=== PATIENT | male | born 1930 | race Caucasian/White ===

== ENCOUNTER 2016-05-07 11:41 | Outpatient (CLI) | payer MEDICARE, OTHER | END 2016-05-07 11:42 | disposition home or self-care (01) | DX: J20.9 Acute bronchitis, unspecified (principal) ==

== ENCOUNTER 2019-09-12 13:56 | Outpatient (CLI) | payer MEDICARE, OTHER ==
--- NOTE | 2019-09-13 14:36 | XRAY Report ---
Reason: ARTHRITIS R KNEE Procedure Date: 09/12/2019 Accession Number: [id number] / [id number] Procedure: XR - Knee 3 View RT CPT Code: Final Report FULL RESULT: EXAM: RIGHT KNEE RADIOGRAPHY EXAM DATE: 09/12/2019 02:24 PM. CLINICAL HISTORY: ARTHRITIS R KNEE. Chronic right knee pain and swelling. COMPARISON: None. TECHNIQUE: 3 views. FINDINGS: Bones: Normal. No fractures or bone lesions. Joints: Moderate medial compartmental narrowing. Spurring of the tibial spines and intercondylar notch. Mild suprapatellar spurring. Mild narrowing of patella femoral joint space with lateral marginal osteophytes. Medial tibial plateau subchondral sclerosis. Soft Tissues: Atherosclerotic arterial calcifications. No soft tissue swelling. IMPRESSION: Mild to moderate degenerative changes. Kellgren Perez Grade 2-3. Kellgren and Perez classification of osteoarthritis: Grade 0: no radiographic features of osteoarthritis are present Grade 1: doubtful joint space narrowing (JSN) and possible osteophytic lipping Grade 2: definite osteophytes and possible JSN on anteroposterior weight-bearing radiograph Grade 3: multiple osteophytes, definite JSN, sclerosis, possible bony deformity Grade 4: large osteophytes, marked JSN, severe sclerosis and definite bony deformity RADIA
== END 2019-09-12 13:57 | disposition home or self-care (01) ==
LOC: DI 13:56
PROVIDERS: ATTEND Family Medicine
DX: M17.11 Unilateral primary osteoarthritis, right knee (principal)

== ENCOUNTER 2020-01-31 15:56 | Inpatient (IN) | payer MEDICARE, OTHER ==
--- NOTE | 2020-01-31 16:30 | ED Physician Documentation ---
History of Present Illness - Stated complaint Stated Complaint: SOA/SWOLLEN ABD - History obtained from History obtained from: Patient, Other (care notes, cardiology) - Additonal information Additional information: 89-year-old gentleman that has a history of coronary artery disease (s/p CABG), congestive systolic heart failure, atrial fibrillation on anticoagulation and diabetes was asked to come to the emergency department for evaluation of anasarca. I spoke with his peanut butter maker Dr. Evans earlier this a.m. He reports that 10 days ago the patient's Lasix regimen was stopped as the primary provider (Dr. Chavez) felt it was not effective at reducing his water retention. He was changed from 80 mg of Lasix twice daily to Bumex 1 mg twice daily. Since then the patient has had progressive swelling anasarca of his lower extremities up into the abdomen. Patient denies chest pain but states that he is more dyspneic than normal. He denies cough or fevers. No abdominal pain nausea or vomiting . Review of Systems Constitutional: denies: Fever, Chills Ears: reports: Reviewed and negative Nose: reports: Reviewed and negative Cardiac: reports: Reviewed and negative, Other (Worsening anasarca) Respiratory: reports: Dyspnea. denies: Cough, Hemoptysis, Wheezing GI: reports: Abdominal Swelling. denies: Abdominal Pain, Nausea, Vomiting, Constipation, Diarrhea : denies: Dysuria, Frequency, Hesitancy Skin: denies: Rash, Lesions Musculoskeletal: reports: Reviewed and negative Neurologic: reports: Generalized weakness, Focal weakness Psychiatric: reports: Reviewed and negative PD PAST MEDICAL HISTORY - Past Medical History Cardiovascular: Hypertension, High cholesterol, Coronary artery disease, Atrial fibrillation, Other Respiratory: Shortness of breath Endocrine/Autoimmune: Type 2 diabetes : Benign prostate hypertrophy - Past Surgical History Past Surgical History: Yes Cardiovascular: CABG, Coronary stent, Cardiac catheterization, Other - Present Medications Home Medications: Ambulatory Orders Medication Instructions Recorded Confirmed Alfuzosin HCl [Alfuzosin HCl ER] 10 mg PO DAILY 02/28/19 06/09/19 Amlodipine Besylate 5 mg PO ONCE 02/28/19 06/09/19 Atorvastatin Calcium 40 mg PO DAILY 02/28/19 06/09/19 Cetirizine HCl [Allergy Relief] 10 mg PO DAILY 02/28/19 06/09/19 Finasteride 5 mg PO DAILY 02/28/19 06/09/19 Fluticasone Propionate [24 Hour 2 spray RAMON DAILY 02/28/19 06/09/19 Allergy] Furosemide 40 mg PO BID 02/28/19 06/09/19 Insulin Glargine [Lantus Solostar] 18 units SUBQ QPM 02/28/19 06/09/19 Losartan Potassium 50 mg PO DAILY 02/28/19 06/09/19 Metoprolol Succinate 50 mg PO BID 02/28/19 06/09/19 Montelukast Sodium 10 mg PO DAILY 02/28/19 06/09/19 Prazosin HCl 2 mg PO TID 02/28/19 06/09/19 Rivaroxaban [Xarelto] 15 mg PO DAILY 02/28/19 06/09/19 metFORMIN [Glucophage] 1,000 mg PO BID 02/28/19 06/09/19 Cholecalciferol (Vitamin D3) 400 unit PO DAILY 06/09/19 06/09/19 [Vitamin D3] - Allergies Allergies/Adverse Reactions: Allergies Allergy/AdvReac Type Severity Reaction Status Date / Time Cephalosporins AdvReac Rash Verified 01/31/20 16:14 - Social History Does the pt smoke?: No Smoking Status: Never smoker Does the pt drink ETOH?: Yes Does the pt have substance abuse?: No - Immunizations Immunizations are current?: Yes - POLST Patient has POLST: No PD ED PE EXPANDED - General General: Alert, No acute distress - Neck Neck: Supple w/out meningeal sx, Soft tissue TTP. No: JVD present, No tenderness, Bony TTP, Limited ROM - Cardiac Cardiac: Irregularly irregular, Murmur Present, Radial strong equal, Femoral strong equal, Pedal strong equal, Cap refill < 2 sec - Respiratory Respiratory: Clear to ausultation wayne, Other (Mild tachypnea without distress) - Abdomen Abdomen: Normal Bowel sounds, Other (grossly swollen abdomen with anasarca). No: Tender to palpation - Derm Derm: Other (Hemosiderin staining bilateral lower extremities) - Extremities Extremities: Pedal Pulses Present, Other (Generalized pitting edema bilateral lower extremities including the abdomen. No pitting edema of the upper arms) - Neuro Neuro: Alert and Oriented X 3, CNII-XII intact - GCS Eye Opening: Spontaneous Motor: Obeys Commands Verbal: Oriented Total: 15 Results - Vitals Vitals: Vital Signs - 24 hr 01/31/20 16:05 Temperature 36.5 C Heart Rate 82 Respiratory 23 Rate Blood Pressure 143/80 H O2 Saturation 99 Oxygen O2 Source Room air - EKG (time done) 1617 Rate: Rate (enter#) (81) Rhythm: Atrial fibrillation [place]: Other (IVC) Intervals: Other (intraventricular conductiond elay) Ischemia: Non specific changes Compare to prior EKG: Unchanged from prior EKG Computer interpretation: Agree with computer - Labs Labs: Laboratory Tests 01/31/20 01/31/20 01/31/20 16:30 16:30 16:30 WBC 4.1 L RBC 3.06 L Hgb 7.0 L* Hct 24.8 L MCV 81.0 MCH 22.9 L MCHC 28.2 L RDW 21.3 H Plt Count 199 MPV 10.8 Reticulocyte % (Auto) Neut # (Auto) 2.7 Lymph # (Auto) 0.7 L [place] # (Auto) 0.6 Eos # (Auto) 0.2 Baso # (Auto) 0.0 Absolute Nucleated RBC 0.00 Nucleated RBC % 0.0 Manual Slide Review Indicated WBC Morphology NORMAL APPEARANCE Platelet Estimate NORMAL (130-450,000) Platelet Morphology NORMAL APPEARANCE RBC Morph Micro Appear 1+ SCHISTOCYTES Absolute Retic Sodium 143 Potassium 3.9 Chloride 105 Carbon Dioxide 27 Anion Gap 11.0 BUN 39 H Creatinine 1.7 H Estimated GFR (MDRD) 38 L Glucose 114 H Calcium 8.7 Total Bilirubin 0.8 AST 22 ALT 14 Alkaline Phosphatase 143 H Troponin I High Sens 17.7 B-Natriuretic Peptide Total Protein 6.9 Albumin 3.1 L Globulin 3.8 Albumin/Globulin Ratio 0.8 L Lipase 52 H 01/31/20 01/31/20 16:30 16:30 WBC RBC 3.03 L Hgb Hct MCV MCH MCHC RDW Plt Count MPV Reticulocyte % (Auto) 1.02 Neut # (Auto) Lymph # (Auto) [place] # (Auto) Eos # (Auto) Baso # (Auto) Absolute Nucleated RBC Nucleated RBC % Manual Slide Review WBC Morphology Platelet Estimate Platelet Morphology RBC Morph Micro Appear Absolute Retic 0.031 Sodium Potassium Chloride Carbon Dioxide Anion Gap BUN Creatinine Estimated GFR (MDRD) Glucose Calcium Total Bilirubin AST ALT Alkaline Phosphatase Troponin I High Sens B-Natriuretic Peptide 1941 H Total Protein Albumin Globulin Albumin/Globulin Ratio Lipase - Rads (name of study) CXR Radiology: Final report received (Finding is suggestive of congestive heart failure. Underlying lateral lower lobe patchy infiltrates cannot be excluded. No pneumothorax) PD MEDICAL DECISION MAKING - ED course Complexity details: reviewed old records, reviewed results, re-evaluated patient, considered differential, d/w patient ED course: 89-year-old male with a history of coronary artery disease, CABG, known systolic heart failure with last ejection fraction of 45% presents to the ER with worsening anasarca after a recent change in his diuretic from Lasix to Bumex. His ECG shows atrial fibrillation with good rate control. He does have a mildly elevated however this likely represents a mild troponin leak in the setting of heart failure. His labs today reveal worsening anemia with a baseline hemoglobin today of 7 (last hgb 8.6). Reduced hgb may in part be dilutional. His renal function is also worsening creatinine today 1.7. BNP markedly elevated at greater than 1900. At this time it appears that this gentleman has worsening heart failure likely secondary to volume overload and worsenign systolic heart failure. We have given him 40 mg of Lasix here in the emergency department. I discussed this patient with admitting hospitalist Dr. Bean who is agreed to bring the patient in for further evaluation and treatment of his heart failure and anasarca. Navi flynn and janell discussed with the patient and his at the bedside. Departure - Departure Disposition: 66 [facility] DC/Xfer Clinical Impression: Anasarca, Renal insufficiency Systolic heart failure Qualifiers: Heart failure chronicity: acute on chronic Qualified Code(s): I50.23 - Acute on chronic systolic (congestive) heart failure Atrial fibrillation Qualifiers: Atrial fibrillation type: longstanding persistent Qualified Code(s): I48.11 - Longstanding persistent atrial fibrillation
--- NOTE | 2020-01-31 16:34 | XRAY Report ---
PROCEDURE: Chest 1 View X-Ray INDICATIONS: Chest Pain TECHNIQUE: One view of the chest was acquired. COMPARISON: 06/21/2019 FINDINGS: Surgical changes and devices: Median sternotomy wires are again seen.. Lungs and pleura: Small left pleural effusion is likely present. No pneumothorax. There is pulmonary vascular congestion. Hazy opacity throughout bilateral lung isaac are noted suggestive of pulmonary edema. Underlying left lower lobe infiltrate cannot be excluded. Mediastinum: Mediastinal contours appear normal. Heart size is markedly enlarged. Bones and chest wall: No suspicious bony lesions. Overlying soft tissues appear unremarkable. IMPRESSION: Finding is suggestive of CHF. Underlying lateral lower lobe patchy infiltrates cannot be excluded. No pneumothorax. Reviewed by: Elliot Mclean MD on 01/31/2020 4:33 PM PDT Approved by: Elliot Mclean MD on 01/31/2020 4:33 PM PDT Station ID: [id number]
[2020-01-31 16:49] LABS: BASOPHILS % (AUTO) 0.5 %; EOSINOPHILS # (AUTO) 0.2 10^3/uL (0.0-0.7); EOSINOPHILS % (AUTO) 3.9 %; LYMPHOCYTES # (AUTO) 0.7 10^3/uL (1.5-3.5); LYMPHOCYTES % (AUTO) 16.9 %; MEAN CORPUSCULAR HEMOGLOBIN 22.9 pg (27.0-31.0); MEAN CORPUSCULAR HGB CONC 28.2 g/dL (32.0-36.0); MEAN PLATELET VOLUME 10.8 fL (7.4-11.4); MONOCYTES # (AUTO) 0.6 10^3/uL (0.0-1.0); MONOCYTES % (AUTO) 14.5 %; NEUTROPHILS # (AUTO) 2.7 10^3/uL (1.5-6.6); PLT - PLATELET COUNT 199 10^3/uL (130-450); RED BLOOD COUNT 3.06 10^6/uL (4.70-6.10); RED CELL DISTRIBUTION WIDTH 21.3 % (12.0-15.0); WHITE BLOOD COUNT 4.1 x10^3/uL (4.8-10.8)
[2020-01-31 17:04] LABS: ALBUMIN 3.1 g/dL (3.2-5.5); ALBUMIN/GLOBULIN RATIO 0.8 (1.0-2.2); BILIRUBIN,TOTAL 0.8 mg/dL (0.2-1.0); CALCIUM 8.7 mg/dL (8.5-10.3); CREATININE 1.7 mg/dL (0.6-1.2); PLATELET ESTIMATE, MANUAL NORMAL (130-450,000) (NORMAL); PLATELET MORPHOLOGY NORMAL APPEARANCE (NORMAL); TOTAL PROTEIN 6.9 g/dL (6.7-8.2)
[2020-01-31] MEDS ORDERED: FUROSEMIDE 40 MG/4 ML VIAL IVP STA (17:16)
[2020-01-31] MEDS ORDERED: ONDANSETRON 4 MG/2 ML VIAL IVP PRN (17:36)
[2020-01-31] MEDS ORDERED: oxyCODONE 5 MG TABLET PO PRN (17:36)
[2020-01-31] MEDS ORDERED: ONDANSETRON ODT 4 MG TABLET TL PRN (17:36)
[2020-01-31] MEDS ORDERED: ACETAMINOPHEN 325 MG TABLET PO PRN (17:36)
[2020-01-31] MEDS ORDERED: METOPROLOL 5 MG/5 ML VIAL IVP PRN (18:18)
[2020-01-31] MEDS ORDERED: ALBUTEROL NEB 2.5 MG/3 ML INH PRN (18:20)
[2020-01-31 18:25] LABS: ABSOLUTE RETICS # AUTO 0.031 10^6/uL (0.020-0.110); RED BLOOD COUNT 3.03 10^6/uL (4.70-6.10)
--- NOTE | 2020-01-31 18:52 | HISTORY & PHYSICAL EXAMINATION ---
Chief Complaint - Chief Complaint Chief Complaint: SOB History of Present Illness - Admitted From Admitted From:: ER - History Obtained From Records Reviewed: [facility] History obtained from: pt Exam Limitations: very difficult hearing - History of Present Illness HPI Comment/Other: This is a 89-year-old gentleman With a past medical history significant for hard hearing, Hypertension, High cholesterol, Coronary artery disease, Atrial fibrillation, congestive systolic heart failure, chronic shortness of breath, BPH and diabetes who was asked by his economic research analyst to come to the emergency department for evaluation of anasarca. Patient reported because he feel progressively shortness of breathing, special in the night he feel more short of breathing when he lay in the flat. He went to see his economic research analyst Dr. Evans on today. After Dr. Evans assessed patient, he recommended patient go to the emergency room For further evaluation for patient's anasarca.Per ER provider report from his economic research analyst Dr. Evans, 10 days ago the patient's Lasix regimen was stopped by his PCP as the primary provider felt it was not effective at reducing his water retention. his lasix 80 mg twice daily was changed to Bumex 1 mg twice daily. Since then the patient has had progressive swelling anasarca from his lower extremities up into the abdomen. On examination, patient did have extended abdomen and Moderate bilateral lower extremity edema. Patient denies chest pain, Fever or chill but states that he is more dyspneic than normal. He also reported right upper abdominal pain without nausea or vomiting beginning two or three days ago, pt denies Black or bloody stool. In routine laboratory testing show patient had elevated creatinine 1.7, BNP over 1900, and HGB 7.0. Chest x-ray finding is suggestive of CHF, laterally lower lobe patchy infiltration cannot be excluded. In the ER, patient is afebrile, no tachycardia, 99% sats in room air, RR 23, hemodynamic stable. Discussed care goal with the patient in ER with another nurse and one BODY WIRER because of pt's hard hearing, patient clearly state he want to be DNR. History - Past Medical History Cardiovascular: reports: Hypertension, High cholesterol, Coronary artery disease, Atrial fibrillation, Other Respiratory: reports: Shortness of breath Endocrine/Autoimmune: reports: Type 2 diabetes : reports: Benign prostate hypertrophy MRSA Hx?: No - Past Surgical History Cardiovascular: reports: CABG, Coronary stent, Cardiac catheterization, Other - Family & Social History Family History: Mother: , Father: Family History Comment/Other: Patient reported his father from heart failu re at the age 85, patient reported his mother is healthy but unfortunately from accident at age 85 at [place]. Social History Notes: Patient report he smoked when he service in the [employer] but he stopped smoking at age 21, he denies alcohol or drug issue. He is living at the [facility] - POLST Patient has POLST: No Meds/Allgy - Home Medications Home Medications: Ambulatory Orders Medication Instructions Recorded Confirmed Alfuzosin HCl [Alfuzosin HCl ER] 10 mg PO DAILY 02/28/19 06/09/19 Amlodipine Besylate 5 mg PO ONCE 02/28/19 06/09/19 Atorvastatin Calcium 40 mg PO DAILY 02/28/19 06/09/19 Cetirizine HCl [Allergy Relief] 10 mg PO DAILY 02/28/19 06/09/19 Finasteride 5 mg PO DAILY 02/28/19 06/09/19 Fluticasone Propionate [24 Hour 2 spray RAMON DAILY 02/28/19 06/09/19 Allergy] Furosemide 40 mg PO BID 02/28/19 06/09/19 Insulin Glargine [Lantus Solostar] 18 units SUBQ QPM 02/28/19 06/09/19 Losartan Potassium 50 mg PO DAILY 02/28/19 06/09/19 Metoprolol Succinate 50 mg PO BID 02/28/19 06/09/19 Montelukast Sodium 10 mg PO DAILY 02/28/19 06/09/19 Prazosin HCl 2 mg PO TID 02/28/19 06/09/19 Rivaroxaban [Xarelto] 15 mg PO DAILY 02/28/19 06/09/19 metFORMIN [Glucophage] 1,000 mg PO BID 02/28/19 06/09/19 Cholecalciferol (Vitamin D3) 400 unit PO DAILY 06/09/19 06/09/19 [Vitamin D3] - Allergies Allergies/Adverse Reactions: Allergies Allergy/AdvReac Type Severity Reaction Status Date / Time Cephalosporins AdvReac Rash Verified 01/31/20 16:14 Review of Systems - Constitutional Constitutional: denies: Fever, Chills, Poor appetite, Diaphoresis, Night sweats - Eyes Eyes: denies: Pain, Vision loss - Ears, Nose & Throat Ears, Nose & Throat: denies: Ear pain, Vertigo, Nosebleeds, Nasal congestion, Bleeding gums - Cardiovascular Cariovascular: reports: Edema, Exertional dyspnea, Decr. exercise tolerance, Orthopnea. denies: Palpitations, Chest pain, Lightheadedness, Syncope - Respiratory Respiratory: reports: Orthopnea, SOB at rest, SOB with exertion. denies: Cough, Sputum production, Snoring, Hemoptysis - Gastrointestinal Gastrointestinal: reports: Abdominal distention. denies: Diarrhea, Rectal bleeding, Black stools, Bloody stools, Nausea, Vomiting, Scott blood emesis - Genitourinary Genitourinary: denies: Dysuria - Musculoskeletal Musculoskeletal: denies: Muscle pain, Muscle aches, Limited range of motion - Integumentary Integumentary: denies: Rash, Lesions - Neurological Neurological: denies: Focal weakness, Headache, Dizziness, Numbness, Pre- existing deficit, Abnormal gait, Seizures, Incoordination, Slurred speech - Psychiatric Psychiatric: denies: Depression, Suicidal, Delusions, Hallucinations - Endocrine Endocrine: denies: Polyuria - Hematologic/Lymphatic Hematologic/Lymphatic: denies: Bruising Exam - Vital Signs Vital Signs: Vital Signs x48h Temp Pulse Resp BP Pulse Ox 01/31/20 16:05 36.5 C 82 23 143/80 H 99 - Physical Exam General Appearance: positive: Alert, Mild distress. negative: Lethargic Eyes Bilateral: positive: Normal inspection, PERRL, No lid inflammation ENT: positive: ENT inspection nml, No signs of dehydration. negative: Purulent nasal drainage Neck: positive: Nml inspection, Thyroid nml, Trachea midline. negative: Thyromegaly, Stiff neck, Tracheal deviation Respiratory: positive: Chest non-tender, No respiratory distress. negative: Wheezes, Rales Cardiovascular: positive: Irregularly irregular. negative: Tachycardia, Bradycardia, Systolic murmur, Diastolic murmur Peripheral Pulses: positive: 2+ Abdomen: positive: Non-tender, Nml bowel sounds, Other (pt has distention abdomen but without tenderness). negative: Tenderness, Guarding Back: positive: Nml inspection Skin: positive: Color nml, No rash, Warm, Dry. negative: Cyanosis, Diaphoresis, Pallor Extremities: positive: Non-tender, Full ROM, Pedal edema. negative: Calf tenderness Neurologic/Psychiatric: positive: Oriented x3, Motor nml, Sensation nml, Mood/affect nml. negative: Weakness, Sensory loss, Facial droop, Slurred/abnml speech, Depressed mood/affect Sepsis Event Note (H) - Evaluation Current Stage of Sepsis: Ruled out Conclusion/Plan - Problem List (1) Acute on chronic systolic (congestive) heart failure Conclusion/Plan: Per ER report patient had systolic heart failure with last ejection fraction of 45%. Patient present progressively shortness of breathing, orthopnea, anasarca with bilateral lower extremity edema, BNP over 1900, Chest x-ray suggestion CHF. ER already started with intravenous Lasix, we will continue intravenous Lasix.We will continue laboratory monitoring and continue vital signs monitor, Daily weight,Low-sodium diet, Because the patient also has acute kidney injury so patient has no fluids restriction in diet now, (2) Right upper quadrant abdominal pain Conclusion/Plan: pt report He had sharp up right abdominal pain For 2 to 3 days Special when he lay down in the bed. Patient has no abdominal pain now. Patient has no fever, WBC is not elevated. Patient reported he has no nausea, vomiting, diarrhea. Patient also present extended abdomen. We will ultrasound for patient abdomen, We will consult with a surgeon if necessary. (3) Anasarca Conclusion/Plan: Patient had extended abdomen with bilateral lower extremity edema, Elevated BNP, Shortness of breathing, It is likely from patient acute on chronic heart failure with fluid overloaded. Patient is also complaining abdominal discomfort. We will continue intravenous Lasix, we will do ultrasound of the abdomen. (4) KATHLEEN (acute kidney injury) Conclusion/Plan: Patient has creatinine 1.7, patient had creatinine 1.0 in June of this year. it is Likely from patient's Poor perfusion from heart failure. We will continue diuretics with Lasix, continue laboratory sample carrier, hold nephrogenic toxic agent. (5) Anemia Conclusion/Plan: Patient hemoglobin 7.0, patient looks pale, Shortness of breathing. Patient denies GI bleeding, black stool or bloody stool. We will order 1 unit of the blood, after the transfusion we will give the patient Lasix. Order Occult stool test (6) HTN (hypertension) Conclusion/Plan: Patient has a history of hypertension, will resume home blood pressure medicine, we will resume metoprolol after confirmed by pharmacy. (7) Diabetes Conclusion/Plan: Patient has history diabetic, patient take metformin in the home, will hold metformin, we will start with sliding scale, glucose check and hypoglycemia protocol (8) A-fib Conclusion/Plan: Patient has a history of atrial fibrillation, right now patient heart rate is controlled, we will resume home metoprolol and blood thinner Xarelto, Continue telemetry and vital signs monitor patient (9) BPH (benign prostatic hyperplasia) Conclusion/Plan: Patient has history of BPH, will give patient Flomax and will resume home medica tion after confirmed by pharmacy - Lab Results Fish Bones: 02/01/20 05:10 02/01/20 05:10 Core Measures - Anticipated LOS I expect patient to be DC'd or transferred within 96 hours.: Yes - DVT/VTE - Prophylaxis VTE/DVT Device ordered at admit?: Yes VTE/DVT Prophylaxis med ordered at admit?: Yes
[2020-01-31 18:56] LABS: % IRON SATURATION 4 % (20-50); IRON 18 ug/dL (45-182); TOTAL IRON BINDING CAPACITY 426 ug/dL (250-450); TRANSFERRIN 304 mg/dL (180-329)
[2020-01-31 19:11] LABS: FERRITIN 20.6 ng/mL (23.9-336.2)
[2020-01-31] MEDS: INSULIN ASPART 300 UNIT/3 ML PEN SUBQ SCH (21:08)
[2020-01-31] MEDS ORDERED: FUROSEMIDE 40 MG/4 ML VIAL IVP SCH (23:00)
[2020-02-01] MEDS: FERROUS SULFATE 325 MG TABLET PO SCH ×3 (00:26→21:19)
[2020-02-01] MEDS: MONTELUKAST 10 MG TABLET PO SCH ×2 (00:26→21:19)
[2020-02-01] MEDS: SODIUM CHLORIDE FLUSH 0.9% 10 ML SYRINGE IVP SCH ×3 (00:26→15:52)
[2020-02-01] MEDS: FAMOTIDINE 20 MG TABLET PO SCH ×3 (00:26→21:19)
[2020-02-01 05:19] LABS: BASOPHILS % (AUTO) 0.5 %; EOSINOPHILS # (AUTO) 0.2 10^3/uL (0.0-0.7); HGB - HEMOGLOBIN 7.6 g/dL (14.0-18.0); LYMPHOCYTES # (AUTO) 0.7 10^3/uL (1.5-3.5); LYMPHOCYTES % (AUTO) 17.6 %; MEAN CORPUSCULAR HEMOGLOBIN 23.4 pg (27.0-31.0); MEAN CORPUSCULAR HGB CONC 28.8 g/dL (32.0-36.0); MEAN CORPUSCULAR VOLUME 81.2 fL (80.0-94.0); MONOCYTES # (AUTO) 0.6 10^3/uL (0.0-1.0); MONOCYTES % (AUTO) 14.6 %; NEUTROPHILS # (AUTO) 2.5 10^3/uL (1.5-6.6); PLT - PLATELET COUNT 167 10^3/uL (130-450); RED BLOOD COUNT 3.25 10^6/uL (4.70-6.10); RED CELL DISTRIBUTION WIDTH 20.8 % (12.0-15.0)
[2020-02-01 05:33] LABS: CALCIUM 8.4 mg/dL (8.5-10.3); CREATININE 1.6 mg/dL (0.6-1.2)
[2020-02-01] MEDS: FUROSEMIDE 40 MG/4 ML VIAL IVP SCH ×2 (05:35→13:43)
[2020-02-01 05:47] LABS: PLATELET ESTIMATE, MANUAL NORMAL (130-450,000) (NORMAL)
[2020-02-01] MEDS ORDERED: FUROSEMIDE 40 MG/4 ML VIAL IVP SCH ×2 (06:00)
[2020-02-01] MEDS ORDERED: FERROUS SULFATE 325 MG TABLET PO SCH (08:00)
--- NOTE | 2020-02-01 08:22 | Ultrasound Report ---
PROCEDURE: Abdomen Complete INDICATIONS: upper abdominal pain, ascites, renal failure TECHNIQUE: Real-time scanning was performed of the abdominal and retroperitoneal organs, with image documentatio n. COMPARISON: None. FINDINGS: Liver: Liver is enlarged measuring 20.8 cm. Areas of nodularity are identified. It is overall demons trating steatosis. Gallbladder: Gallbladder demonstrates a markedly thickened wall measuring 8.2 mm. There are areas of increased echogenicity within the gallbladder which are nonmobile. Biliary ducts: Intrahepatic bile ducts are non-dilated. Extrahepatic bile duct caliber measures 7.4 mm. Normal is 6-7 mm or less in diameter, or 10 mm or less post-cholecystectomy. Pancreas: Visualized portions of the pancreas are sonographically normal. Spleen: Spleen is normal in size and homogeneous in echotexture. Kidneys: Kidneys are normal in size and echotexture. Right kidney measures 11.8 cm long; left kidne y measures 10.2 cm long. No hydronephrosis or nephrolithiasis. No solid masses. Left renal cyst is present measuring 13 x 14 mm. Echogenic focus is also noted in the inferior left renal pole measurin g 8 x 6 mm. No definitive shadowing is identified. Right renal cyst is noted measuring 5 x 5 mm. Aorta: Visualized aorta is normal in caliber at less than 3 cm. Iliacs: Proximal common iliac arteries are not visualized. IVC: Intrahepatic inferior vena cava is patent. Miscellaneous: Prominent ascites in all 4 quadrants. IMPRESSION: 1. Prominent ascites. 2. Hepatomegaly with nodularity. Steatosis is also present. 3. Marked gallbladder wall thickening with nonmobile stones versus polyps as above. While can typical ly represent cholelithiasis with cholecystitis, marked gallbladder wall thickening can also be seen w ith hepatic disease. Recommend clinical correlation patient's symptoms and further evaluation for acu te cholecystitis as indicated. Reviewed by: Alexandra Wiggins MD on 02/01/2020 8:21 AM PDT Approved by: Alexandra Wiggins MD on 02/01/2020 8:21 AM PDT Station ID: [id number]
[2020-02-01] MEDS: CYANOCOBALAMIN 500 MCG TABLET PO SCH (08:45)
[2020-02-01] MEDS: TAMSULOSIN 0.4 MG CAPSULE PO SCH (08:45)
[2020-02-01] MEDS: INSULIN ASPART 300 UNIT/3 ML PEN SUBQ SCH ×4 (08:48→21:12)
[2020-02-01] MEDS: METOPROLOL SUCCINATE 50 MG TABLET PO SCH (10:04)
[2020-02-01 11:53] LABS: HEMOGLOBIN A1c% 6.4 % (4.27-6.07)
[2020-02-01] MEDS ORDERED: PIPERACILLIN/TAZOBACTAM 3.375 GM in SODIUM CHLORIDE 0.9% MINIBAG 100 ML IV SCH ×5 (12:00→16:00)
--- NOTE | 2020-02-01 12:03 | PROVIDER PROGRESS NOTE ---
Assessment/Plan - Problem List (1) Acute on chronic systolic (congestive) heart failure Assessment/Plan: 10-15 Pt Feels better. Patient remain 97% sats on room air. BNP is trending down. Echo still pending. 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 Patient present progressively shortness of breathing, orthopnea, anasarca with bilateral lower extremity edema, BNP over 1900, Chest x-ray suggestion CHF. ER already started with intravenous Lasix, we will continue intravenous Lasix.We will continue laboratory monitoring and continue vital signs monitor, Daily weight,Low-sodium diet, Because the patient also has acute kidney injury so patient has no fluids restriction in diet now, (2) cholecystitis Conclusion/Plan: 1014, ultrasound showed patient had cholecystitis. Patient report 2-3 days abdominal pain. But the patient has no fever, no elevated WBC. Now his abdominal pain is controlled, and he feel comfortable. Patient has normal total bili, normal AST ALT, slightly elevated alkaline phosphate. Consult with surgeon, surgeon recommended antibiotics for patient now. Patient will see the patient, will continue follow-up with surgeon's recommendation. Add probiotics. Patient signed comfortable care in his PLOST, We discussed with the patient for any further intervention. pt report He had sharp up right abdominal pain For 2 to 3 days Special when he lay down in the bed. Patient has no abdominal pain now. Patient has no fever, WBC is not elevated. Patient reported he has no nausea, vomiting, diarrhea. Patient also present extended abdomen. We will ultrasound for patient abdomen, We will consult with a surgeon if necessary. (3) ascites Conclusion/Plan: Ultrasound show patient prominent ascites. Patient has normal total bili, normal AST ALT, slightly elevated alkaline phosphate. Continue follow-up surgeon to see if patient needed paracentesis. Patient has a liver nodules and combination patient has heart failure which both could contribute ascites. Patient had extended abdomen with bilateral lower extremity edema, Elevated BNP, Shortness of breathing, It is likely from patient acute on chronic heart failure with fluid overloaded. Patient is also complaining abdominal discomfort. We will continue intravenous Lasix, we will do ultrasound of the abdomen. (4)liver nodules Ultrasound showed patient has liver nodules, Patient has normal total bili, normal AST ALT, slightly elevated alkaline phosphate. We discussed the surgeon p atient may need MRCP To figure out patient liver nodule feature. 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 it is Likely from patient's Poor perfusion from heart failure. 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 (6) Anemia Conclusion/Plan: 1015, patient hemoglobin 7.6 after 1 unit blood transfusion, will continue lab monitor Patient hemoglobin 7.0, patient looks pale, Shortness of breathing. Patient denies GI bleeding, black stool or bloody stool. We will order 1 unit of the blood, after the transfusion we will give the patient Lasix. Order Occult stool test (7) HTN (hypertension) Conclusion/Plan: Patient has a history of hypertension, will resume home blood pressure medicine, we will resume metoprolol after confirmed by pharmacy. (8) Diabetes Conclusion/Plan: Patient has history diabetic, patient take metformin in the home, will hold metformin, we will start with sliding scale, glucose check and hypoglycemia protocol (9) A-fib Conclusion/Plan: 1015, stable, HR is controlled.Continue home medications Xarelto. Patient has a history of atrial fibrillation, right now patient heart rate is controlled, we will resume home metoprolol and blood thinner Xarelto, Continue telemetry and vital signs monitor patient (10) BPH (benign prostatic hyperplasia) Conclusion/Plan: Patient has history of BPH, will give patient Flomax and will resume home medication after confirmed by pharmacy - Current Meds Current Meds: Current Medications Generic Name Dose Route Start Last Admin Trade Name Devaughnq PRN Reason Stop Dose Admin Cyanocobalamin 500 mcg 02/01/20 09:00 02/01/20 08:45 Vitamin B-12 PO 500 mcg DAILY DIANA Administration Famotidine 20 mg 01/31/20 21:00 02/01/20 08:44 Pepcid PO 20 mg BID DIANA Administration Ferrous Sulfate 325 mg 01/31/20 21:00 02/01/20 08:45 Feosol PO 325 mg BID DIANA Administration Furosemide 40 mg 02/01/20 06:00 02/01/20 05:35 Lasix Inj 40 Mg Vial IVP 40 mg BIDDIURETIC DIANA Administration Piperacillin Sod/Tazobactam 100 mls @ 200 mls/hr 02/01/20 12:00 02/01/20 12:00 Sod 3.375 gm/ Sodium Chloride IV 02/01/20 13:00 200 mls/hr ONCE DIANA Administration Insulin Aspart 1 - 5 unit 01/31/20 21:00 02/01/20 08:48 Novolog SUBQ Not Given 0800,1200,1700,2100 DIANA Protocol Metoprolol Succinate 50 mg 02/01/20 09:00 02/01/20 10:04 Toprol Xl PO 50 mg DAILY DIANA Administration Montelukast Sodium 10 mg 01/31/20 21:00 02/01/20 00:26 Singulair PO 10 mg QPM DIANA Administration Sodium Chloride 10 ml 02/01/20 01:00 02/01/20 08:45 Normal Saline Flush 0.9% IVP 10 ml 0100,0900,1700 DIANA Administration Tamsulosin HCl 0.4 mg 02/01/20 09:00 02/01/20 08:45 Flomax PO 0.4 mg DAILY DIANA Administration - Lab Result Fish Bone Diagrams: 02/01/20 05:10 02/01/20 05:10 - Additional Planning My Orders: My Active Orders 01/31/20 17:58 Transfuse RBCs Leukoreduced [RC] .ONCE 01/31/20 18:14 Daily Weight [RC] 0600 01/31/20 18:16 Blood Glucose Checks - Eating [RC] 0800,1200,1700,2100 Initiate Hypoglycemia Protocol [RC] .protocol 01/31/20 18:18 Metoprolol Inj [Lopressor Inj] 5 mg IVP Q6H PRN 01/31/20 18:20 Nebulizer/MDI Tx. [RC] .PRN Resp Teach Nebulizer/MDI [RC] .ONCE Albuterol 2.5 mg INH RTQ4H PRN 01/31/20 21:00 Ferrous Sulfate [Feosol] 325 mg PO BID Insulin Aspart [NovoLOG] 1 - 5 unit SUBQ 0800,1200,1700,2100 Montelukast [Singulair] 10 mg PO QPM 02/01/20 General Surgery Consult [CONS] Routine 02/01/20 06:00 FUROSEMIDE INJ 40mg VIAL [LASIX INJ 40 mg VIAL] 40 mg IVP BIDDIURETIC 02/01/20 09:00 Cyanocobalamin [Vitamin B-12] 500 mcg PO DAILY Metoprolol Succinate [Toprol Xl] 50 mg PO DAILY Tamsulosin [Flomax] 0.4 mg PO DAILY 02/01/20 12:00 Piperacillin/Tazobactam [Zosyn] 3.375 gm Sodium Chloride 0.9% Minibag [Normal Saline 0.9% Minibag] 100 ml IV ONCE 02/01/20 16:00 Piperacillin/Tazobactam [Zosyn] 3.375 gm Sodium Chloride 0.9% Minibag [Normal Saline 0.9% Minibag] 100 ml IV Q8H 02/01/20 17:00 Rivaroxaban [Xarelto] 15 mg PO 1700 Saccharomyces Boulardii [Florastor] 250 mg PO BIDWM 02/01/20 18:14 Echo Transthoracic Complete [ECHO] Routine 02/02/20 05:00 BNP - B-NATRIURETIC PEPTIDE [IAI] DAILYLAB CBC - COMP BLD CT W/AUTO DIFF [HEME] DAILYLAB CMP [COMPREHENSIVE METABOLIC PANEL] [CHEM] DAILYLAB 02/03/20 05:00 BNP - B-NATRIURETIC PEPTIDE [IAI] DAILYLAB CBC - COMP BLD CT W/AUTO DIFF [HEME] DAILYLAB CMP [COMPREHENSIVE METABOLIC PANEL] [CHEM] DAILYLAB 02/04/20 05:00 BNP - B-NATRIURETIC PEPTIDE [IAI] DAILYLAB CBC - COMP BLD CT W/AUTO DIFF [HEME] DAILYLAB CMP [COMPREHENSIVE METABOLIC PANEL] [CHEM] DAILYLAB 02/05/20 05:00 BNP - B-NATRIURETIC PEPTIDE [IAI] DAILYLAB CBC - COMP BLD CT W/AUTO DIFF [HEME] DAILYLAB CMP [COMPREHENSIVE METABOLIC PANEL] [CHEM] DAILYLAB 02/06/20 05:00 CMP [COMPREHENSIVE METABOLIC PANEL] [CHEM] DAILYLAB Subjective - Subjective Patient Reports: Feeling Better Objective Vital Signs: Vital Signs - 24 hr 01/31/20 01/31/20 01/31/20 16:05 19:05 19:42 Temperature 36.5 C 36.3 C L 36.3 C L Heart Rate 82 81 Heart Rate [ 81 Brachial] Respiratory 23 18 16 Rate Blood Pressure 143/80 H 144/68 H Blood Pressure 134/79 H [Right Brachial artery] O2 Saturation 99 95 01/31/20 01/31/20 01/31/20 20:05 21:30 22:33 Temperature 36.4 C L 36.4 C L Heart Rate 73 81 81 Heart Rate [ Brachial] Respiratory 16 18 17 Rate Blood Pressure 135/94 H 147/83 H Blood Pressure [Right Brachial artery] O2 Saturation 02/01/20 02/01/20 02/01/20 00:00 00:26 05:36 Temperature 36.3 C L Heart Rate Heart Rate [ 84 78 74 Brachial] Respiratory 18 Rate Blood Pressure Blood Pressure 151/76 H 139/74 H 129/75 [Right Brachial artery] O2 Saturation 97 02/01/20 02/01/20 08:00 10:27 Temperature 36.5 C Heart Rate 62 Heart Rate [ 88 Brachial] Respiratory 18 18 Rate Blood Pressure Blood Pressure 134/75 H [Right Brachial artery] O2 Saturation 94 Oxygen O2 Source Room air I&O (Last 24 Hrs): Intake and Output Totals x24h 01/30/20 01/31/20 02/01/20 23:59 23:59 23:59 Intake Total 350 480 Output Total 625 3825 Balance -275 -2295 General: Alert, Oriented x3, No acute distress HEENT: Atraumatic Neck: Supple Lymphatic: no adenopathy Neuro: Alert, Non Focal, Oriented Times 3 Cardiovascular: Normal S1, Normal S2 Respiratory: Chest non-tender, No respiratory distress Abdomen: Normal bowel sounds, Soft, No tenderness Extremities: Normal pulses - Results Results: Laboratory Results WBC 4.0 x10^3/uL (4.8-10.8) L 02/01/20 05:10 RBC 3.25 10^6/uL (4.70-6.10) L 02/01/20 05:10 Hgb 7.6 g/dL (14.0-18.0) L 02/01/20 05:10 Hct 26.4 % (42.0-52.0) L 02/01/20 05:10 MCV 81.2 fL (80.0-94.0) 02/01/20 05:10 MCH 23.4 pg (27.0-31.0) L 02/01/20 05:10 MCHC 28.8 g/dL (32.0-36.0) L 02/01/20 05:10 RDW 20.8 % (12.0-15.0) H 02/01/20 05:10 Plt Count 167 10^3/uL (130-450) 02/01/20 05:10 MPV 10.0 fL (7.4-11.4) 02/01/20 05:10 Reticulocyte % (Auto) 1.02 % (0.5-2.3) 01/31/20 16:30 Neut # (Auto) 2.5 10^3/uL (1.5-6.6) 02/01/20 05:10 Lymph # (Auto) 0.7 10^3/uL (1.5-3.5) L 02/01/20 05:10 [place] # (Auto) 0.6 10^3/uL (0.0-1.0) 02/01/20 05:10 Eos # (Auto) 0.2 10^3/uL (0.0-0.7) 02/01/20 05:10 Baso # (Auto) 0.0 10^3/uL (0.0-0.1) 02/01/20 05:10 Absolute Nucleated RBC 0.00 x10^3/uL 02/01/20 05:10 Nucleated RBC % 0.0 /100WBC 02/01/20 05:10 Manual Slide Review Indicated 02/01/20 05:10 WBC Morphology NORMAL APPEARANCE (NORMAL) 01/31/20 16:30 Platelet Estimate NORMAL (130-450,000) (NORMAL) 02/01/20 05:10 Platelet Morphology NORMAL APPEARANCE (NORMAL) 01/31/20 16:30 RBC Morph Micro Appear 1+ ANISOCYTOSIS (NORMAL) 2+ HYPOCHROMASIA (NORMAL) 1+ OVALOCYTES (NORMAL) 02/01/20 05:10 RBC Morph Micro Appear 1+ ANISOCYTOSIS (NORMAL) 2+ HYPOCHROMASIA (NORMAL) 1+ OVALOCYTES (NORMAL) 02/01/20 05:10 RBC Morph Micro Appear 1+ ANISOCYTOSIS (NORMAL) 2+ HYPOCHROMASIA (NORMAL) 1+ OVALOCYTES (NORMAL) 02/01/20 05:10 Absolute Retic 0.031 10^6/uL (0.020-0.110) 01/31/20 16:30 Sodium 142 mmol/L (135-145) 02/01/20 05:10 Potassium 3.7 mmol/L (3.5-5.0) 02/01/20 05:10 Chloride 107 mmol/L (101-111) 02/01/20 05:10 Carbon Dioxide 26 mmol/L (21-32) 02/01/20 05:10 Anion Gap 9.0 (6-13) 02/01/20 05:10 BUN 34 mg/dL (6-20) H 02/01/20 05:10 Creatinine 1.6 mg/dL (0.6-1.2) H 02/01/20 05:10 Estimated GFR (MDRD) 41 (>89) L 02/01/20 05:10 Glucose 112 mg/dL (70-100) H 02/01/20 05:10 POC Whole Bld Glucose 115 mg/dL (70 - 100) H 02/01/20 11:02 Estimat Average Glucose 137 mg/dL (70-100) H 02/01/20 05:10 Hemoglobin A1c % 6.4 % (4.27-6.07) H 02/01/20 05:10 Calcium 8.4 mg/dL (8.5-10.3) L 02/01/20 05:10 Iron 18 ug/dL (45-182) L 01/31/20 16:30 TIBC 426 ug/dL (250-450) 01/31/20 16:30 % Saturation 4 % (20-50) L 01/31/20 16:30 Transferrin 304 mg/dL (180-329) 01/31/20 16:30 Ferritin 20.6 ng/mL (23.9-336.2) L 01/31/20 16:30 Total Bilirubin 0.8 mg/dL (0.2-1.0) 01/31/20 16:30 AST 22 IU/L (10-42) 01/31/20 16:30 ALT 14 IU/L (10-60) 01/31/20 16:30 Alkaline Phosphatase 143 IU/L (42-121) H 01/31/20 16:30 Lactate Dehydrogenase 189 IU/L (91-225) 01/31/20 16:30 Troponin I High Sens 17.7 ng/L (2.3-19.7) 01/31/20 16:30 B-Natriuretic Peptide 1828 pg/mL (5-100) H 10/15/20 05:10 Total Protein 6.9 g/dL (6.7-8.2) 01/31/20 16:30 Albumin 3.1 g/dL (3.2-5.5) L 01/31/20 16:30 Globulin 3.8 g/dL (2.1-4.2) 01/31/20 16:30 Albumin/Globulin Ratio 0.8 (1.0-2.2) L 01/31/20 16:30 Lipase 52 U/L (22-51) H 01/31/20 16:30 Vitamin B12 226 pg/mL (180-914) 01/31/20 16:30 Blood Type A POSITIVE 01/31/20 18:07 Blood Type Recheck A POSITIVE 01/31/20 16: Antibody Screen NEGATIVE 01/31/20 18: Crossmatch IS Only See Detail 01/31/20 18:07 Sepsis Event Note (H) - Evaluation Current Stage of Sepsis: Ruled out ABX Reporting Has patient been on IV antibiotics over the past 48 hours?: Yes Current Medications - Current Medications Current Medications: Active Medications Acetaminophen (Tylenol) 650 mg PO Q4HR PRN PRN Reason: Pain 1 to 4 Albuterol () 2.5 mg INH RTQ4H PRN PRN Reason: Wheezing Cyanocobalamin (Vitamin B-12) 500 mcg PO DAILY [facility] Last Admin: 02/01/20 08:45 Dose: 500 mcg Documented by: Famotidine (Pepcid) 20 mg PO BID [facility] Last Admin: 02/01/20 08:44 Dose: 20 mg Documented by: Ferrous Sulfate (Feosol) 325 mg PO BID [facility] Last Admin: 02/01/20 08:45 Dose: 325 mg Documented by: Furosemide (Lasix Inj 40 Mg Vial) 40 mg IVP BIDDIURETIC [facility] Last Admin: 02/01/20 05:35 Dose: 40 mg Documented by: Piperacillin Sod/Tazobactam (Sod 3.375 gm/ Sodium Chloride) 100 mls @ 25 mls/hr IV Q8H [facility] Insulin Aspart (Novolog) 1 - 5 unit SUBQ 0800,1200,1700,2100 [facility]; Protocol Last Admin: 02/01/20 12:50 Dose: Not Given Documented by: Metoprolol Succinate (Toprol Xl) 50 mg PO DAILY [facility] Last Admin: 02/01/20 10:04 Dose: 50 mg Documented by: Metoprolol Tartrate (Lopressor Inj) 5 mg IVP Q6H PRN PRN Reason: Tachycardia Montelukast Sodium (Singulair) 10 mg PO QPM [facility] Last Admin: 02/01/20 00:26 Dose: 10 mg Documented by: Ondansetron HCl (Zofran Odt) 4 mg TL Q6HR PRN PRN Reason: Nausea / Vomiting Ondansetron HCl (Zofran Inj) 4 mg IVP Q6HR PRN PRN Reason: Nausea / Vomiting Oxycodone HCl (Roxicodone) 5 mg PO Q4HR PRN PRN Reason: Pain 5 to 7 Rivaroxaban (Xarelto) 15 mg PO 1700 [facility] Saccharomyces Boulardii (Florastor) 250 mg PO BIDWM [facility] Sodium Chloride (Normal Saline Flush 0.9%) 10 ml IVP PRN PRN PRN Reason: NEEDED PER PROVIDER ORDERS Sodium Chloride (Normal Saline Flush 0.9%) 10 ml IVP 0100,0900,1700 [facility] Last Admin: 02/01/20 08:45 Dose: 10 ml Documented by: Tamsulosin HCl (Flomax) 0.4 mg PO DAILY [facility] Last Admin: 02/01/20 08:45 Dose: 0.4 mg Documented by: Alfuzosin HCl [Alfuzosin HCl ER] 10 mg PO DAILY 02/28/19 Amlodipine Besylate 5 mg PO ONCE 02/28/19 Atorvastatin Calcium 40 mg PO DAILY 02/28/19 Cetirizine HCl [Allergy Relief] 10 mg PO DAILY 02/28/19 Finasteride 5 mg PO DAILY 02/28/19 Fluticasone Propionate [24 Hour Allergy] 2 spray RAMON DAILY 02/28/19 Furosemide 40 mg PO BID 02/28/19 Insulin Glargine [Lantus Solostar] 18 units SUBQ QPM 02/28/19 Losartan Potassium 50 mg PO DAILY 02/28/19 Metoprolol Succinate 50 mg PO BID 02/28/19 Montelukast Sodium 10 mg PO DAILY 02/28/19 Prazosin HCl 2 mg PO TID 02/28/19 Rivaroxaban [Xarelto] 15 mg PO DAILY 02/28/19 metFORMIN [Glucophage] 1,000 mg PO BID 02/28/19 Cholecalciferol (Vitamin D3) [Vitamin D3] 400 unit PO DAILY 06/09/19
--- NOTE | 2020-02-01 16:34 | PHARMACY PROGRESS NOTE ---
- Best Possible Medication History Admit Date and Time: 01/31/20 1736 Processed by: Pharmacy Medication History completed: Yes Secondary Source(s): Physician records, Insurance records As the person ultimately responsible for medication therapy, providers are able to order a medication from an existing home medication list in [facility] via the "Reconcile Routine" prior to Confirmation of that medication by system support analyst. Such practice is discouraged except when the physician, in their clinical judgment, deems that a medical need exists for a medication without regard to previous use.
--- NOTE | 2020-02-01 16:39 | HISTORY & PHYSICAL EXAMINATION ---
Chief Complaint - Chief Complaint Chief Complaint: Swelling legs and abdomen Abdominal Pain HPI - History Obtained From Records Reviewed: Old records reviewed History obtained from: Patient, Family Exam limitations: No limitations - History of Present Illness Severity at the worst: Mild Pain Quality: Dull Duration: Days: (1) Associated symptoms: Other (leg swelling) HPI Comment/Other: He had change in medication and developed progressive swelling and abdominal pain yesterday. He has been admitted to medicine and treated. Today he is much improved. He has known CHF. His abdominal pain is gone. No nausea or vomiting . Tolerated breakfast well. Afebrile. An ultrasound of his abdomen was done. consult for gallbladder US: IMPRESSION: 1. Prominent ascites. 2. Hepatomegaly with nodularity. Steatosis is also present. 3. Marked gallbladder wall thickening with nonmobile stones versus polyps as above. While can typically represent cholelithiasis with cholecystitis, marked gallbladder wall thickening can also be seen with hepatic disease. Recommend clinical correlation patient's symptoms and further evaluation for acute cholecystitis as indicated. Reviewed by: Alexandra Wiggins MD on 02/01/2020 8:21 AM PDT Approved by: Alexandra Wiggins MD on 02/01/2020 8:21 AM PDT PMH/PSH - Past Medical History Cardiovascular: positive: Hypertension, High cholesterol, Coronary artery disease, Atrial fibrillation, Other Respiratory: positive: Shortness of breath Endocrine/Autoimmune: positive: Type 2 diabetes : positive: Benign prostate hypertrophy MRSA Hx?: No - Past Surgical History Cardiovascular: positive: CABG, Coronary stent, Cardiac catheterization, Other Social & Family Hx - Social History Does the pt smoke?: No Smoking Status: Former smoker Does the pt drink ETOH?: Yes Does the pt have substance abuse?: No - POLST Patient has POLST: No Meds/Allgy - Home Medications Home Medications: Ambulatory Orders Medication Instructions Recorded Confirmed Alfuzosin HCl [Alfuzosin HCl ER] 10 mg PO DAILY 02/28/19 06/09/19 Amlodipine Besylate 10 mg PO SUTUTHSA 02/28/19 06/09/19 Atorvastatin Calcium 40 mg PO QPM 02/28/19 06/09/19 Cetirizine HCl [Allergy Relief] 10 mg PO DAILY 02/28/19 06/09/19 Finasteride 5 mg PO DAILY 02/28/19 06/09/19 Furosemide 80 mg PO BID 02/28/19 06/09/19 Insulin Glargine [Lantus Solostar] 18 units SUBQ QPM 02/28/19 06/09/19 Losartan Potassium 50 mg PO DAILY 02/28/19 06/09/19 Metoprolol Succinate 50 mg PO BID 02/28/19 06/09/19 Montelukast Sodium 10 mg PO DAILY 02/28/19 06/09/19 Prazosin HCl 2 mg PO TID 02/28/19 06/09/19 metFORMIN [Glucophage] 1,000 mg PO BID 02/28/19 06/09/19 Cholecalciferol [Vitamin D3] 400 unit PO DAILY 02/01/20 Fluticasone [Flonase] 1 spray RAMON DAILY 02/01/20 Rivaroxaban [Xarelto] 15 mg PO DAILY 02/01/20 - Allergies Allergies/Adverse Reactions: Allergies Allergy/AdvReac Type Severity Reaction Status Date / Time Cephalosporins AdvReac Rash Verified 01/31/20 16:14 Review of Systems - Gastrointestinal Gastrointestinal: reports: Other (feeling much halima. denies abdominal pain or nausea) Exam - Vital Signs Reviewed Vital Signs: Yes Vital Signs: Vital Signs x48h Temp Pulse Pulse Resp BP Pulse Ox 02/01/20 15:42 36.0 C L 66 16 129/77 99 02/01/20 10:27 62 18 - Physical Exam General Appearance: positive: No acute distress, Alert Eyes Bilateral: positive: Normal inspection, PERRL, EOMI, No scleral icterus Respiratory: positive: No respiratory distress Abdomen: positive: Non-tender Results - Lab Results Fish Bones: 02/01/20 05:10 02/01/20 05:10 Other Lab Results: Lab Results x24hrs 02/01/20 02/01/20 02/01/20 Range/Units 11:02 07:49 05:10 WBC (4.8-10.8) x10^3/uL RBC (4.70-6.10) 10^6/uL Hgb (14.0-18.0) g/dL Hct (42.0-52.0) % MCV (80.0-94.0) fL MCH (27.0-31.0) pg MCHC (32.0-36.0) g/dL RDW (12.0-15.0) % Plt Count (130-450) 10^3/uL MPV (7.4-11.4) fL Reticulocyte % (Auto) (0.5-2.3) % Neut # (Auto) (1.5-6.6) 10^3/uL Lymph # (Auto) (1.5-3.5) 10^3/uL Ceiba # (Auto) (0.0-1.0) 10^3/uL Eos # (Auto) (0.0-0.7) 10^3/uL Baso # (Auto) (0.0-0.1) 10^3/uL Absolute Nucleated RBC x10^3/uL Nucleated RBC % /100WBC Manual Slide Review WBC Morphology (NORMAL) Platelet Estimate (NORMAL) Platelet Morphology (NORMAL) RBC Morph Micro Appear (NORMAL) Absolute Retic (0.020-0.110) 10^6/uL Sodium (135-145) mmol/L Potassium (3.5-5.0) mmol/L Chloride (101-111) mmol/L Carbon Dioxide (21-32) mmol/L Anion Gap (6-13) BUN (6-20) mg/dL Creatinine (0.6-1.2) mg/dL Estimated GFR (MDRD) (>89) Glucose (70-100) mg/dL POC Whole Bld Glucose 115 H 75 (70 - 100) mg/dL Estimat Average Glucose 137 H (70-100) mg/dL Hemoglobin A1c % 6.4 H (4.27-6.07) % Calcium (8.5-10.3) mg/dL Iron (45-182) ug/dL TIBC (250-450) ug/dL % Saturation (20-50) % Transferrin (180-329) mg/dL Ferritin (23.9-336.2) ng/mL Total Bilirubin (0.2-1.0) mg/dL AST (10-42) IU/L ALT (10-60) IU/L Alkaline Phosphatase (42-121) IU/L Lactate Dehydrogenase (91-225) IU/L Troponin I High Sens (2.3-19.7) ng/L B-Natriuretic Peptide (5-100) pg/mL Total Protein (6.7-8.2) g/dL Albumin (3.2-5.5) g/dL Globulin (2.1-4.2) g/dL Albumin/Globulin Ratio (1.0-2.2) Lipase (22-51) U/L Vitamin B12 (180-914) pg/mL Blood Type Blood Type Recheck Antibody Screen Crossmatch IS Only 02/01/20 02/01/20 02/01/20 Range/Units 05:10 05:10 05:10 WBC 4.0 L (4.8-10.8) x10^3/uL RBC 3.25 L (4.70-6.10) 10^6/uL Hgb 7.6 L (14.0-18.0) g/dL Hct 26.4 L (42.0-52.0) % MCV 81.2 (80.0-94.0) fL MCH 23.4 L (27.0-31.0) pg MCHC 28.8 L (32.0-36.0) g/dL RDW 20.8 H (12.0-15.0) % Plt Count 167 (130-450) 10^3/uL MPV 10.0 (7.4-11.4) fL Reticulocyte % (Auto) (0.5-2.3) % Neut # (Auto) 2.5 (1.5-6.6) 10^3/uL Lymph # (Auto) 0.7 L (1.5-3.5) 10^3/uL Ceiba # (Auto) 0.6 (0.0-1.0) 10^3/uL Eos # (Auto) 0.2 (0.0-0.7) 10^3/uL Baso # (Auto) 0.0 (0.0-0.1) 10^3/uL Absolute Nucleated RBC 0.00 x10^3/uL Nucleated RBC % 0.0 /100WBC Manual Slide Review Indicated WBC Morphology (NORMAL) Platelet Estimate NORMAL (130-450,000) (NORMAL) Platelet Morphology (NORMAL) RBC Morph Micro Appear 1+ OVALOCYTES (NORMAL) Absolute Retic (0.020-0.110) 10^6/uL Sodium 142 (135-145) mmol/L Potassium 3.7 (3.5-5.0) mmol/L Chloride 107 (101-111) mmol/L Carbon Dioxide 26 (21-32) mmol/L Anion Gap 9.0 (6-13) BUN 34 H (6-20) mg/dL Creatinine 1.6 H (0.6-1.2) mg/dL Estimated GFR (MDRD) 41 L (>89) Glucose 112 H (70-100) mg/dL POC Whole Bld Glucose (70 - 100) mg/dL Estimat Average Glucose (70-100) mg/dL Hemoglobin A1c % (4.27-6.07) % Calcium 8.4 L (8.5-10.3) mg/dL Iron (45-182) ug/dL TIBC (250-450) ug/dL % Saturation (20-50) % Transferrin (180-329) mg/dL Ferritin (23.9-336.2) ng/mL Total Bilirubin (0.2-1.0) mg/dL AST (10-42) IU/L ALT (10-60) IU/L Alkaline Phosphatase (42-121) IU/L Lactate Dehydrogenase (91-225) IU/L Troponin I High Sens (2.3-19.7) ng/L B-Natriuretic Peptide 1828 H (5-100) pg/mL Total Protein (6.7-8.2) g/dL Albumin (3.2-5.5) g/dL Globulin (2.1-4.2) g/dL Albumin/Globulin Ratio (1.0-2.2) Lipase (22-51) U/L Vitamin B12 (180-914) pg/mL Blood Type Blood Type Recheck Antibody Screen Crossmatch IS Only 01/31/20 01/31/20 01/31/20 Range/Units 20:44 18:07 16:30 WBC (4.8-10.8) x10^3/uL RBC (4.70-6.10) 10^6/uL Hgb (14.0-18.0) g/dL Hct (42.0-52.0) % MCV (80.0-94.0) fL MCH (27.0-31.0) pg MCHC (32.0-36.0) g/dL RDW (12.0-15.0) % Plt Count (130-450) 10^3/uL MPV (7.4-11.4) fL Reticulocyte % (Auto) (0.5-2.3) % Neut # (Auto) (1.5-6.6) 10^3/uL Lymph # (Auto) (1.5-3.5) 10^3/uL Ceiba # (Auto) (0.0-1.0) 10^3/uL Eos # (Auto) (0.0-0.7) 10^3/uL Baso # (Auto) (0.0-0.1) 10^3/uL Absolute Nucleated RBC x10^3/uL Nucleated RBC % /100WBC Manual Slide Review WBC Morphology (NORMAL) Platelet Estimate (NORMAL) Platelet Morphology (NORMAL) RBC Morph Micro Appear (NORMAL) Absolute Retic (0.020-0.110) 10^6/uL Sodium (135-145) mmol/L Potassium (3.5-5.0) mmol/L Chloride (101-111) mmol/L Carbon Dioxide (21-32) mmol/L Anion Gap (6-13) BUN (6-20) mg/dL Creatinine (0.6-1.2) mg/dL Estimated GFR (MDRD) (>89) Glucose (70-100) mg/dL POC Whole Bld Glucose 106 H (70 - 100) mg/dL Estimat Average Glucose (70-100) mg/dL Hemoglobin A1c % (4.27-6.07) % Calcium (8.5-10.3) mg/dL Iron (45-182) ug/dL TIBC (250-450) ug/dL % Saturation (20-50) % Transferrin (180-329) mg/dL Ferritin (23.9-336.2) ng/mL Total Bilirubin (0.2-1.0) mg/dL AST (10-42) IU/L ALT (10-60) IU/L Alkaline Phosphatase (42-121) IU/L Lactate Dehydrogenase (91-225) IU/L Troponin I High Sens (2.3-19.7) ng/L B-Natriuretic Peptide (5-100) pg/mL Total Protein (6.7-8.2) g/dL Albumin (3.2-5.5) g/dL Globulin (2.1-4.2) g/dL Albumin/Globulin Ratio (1.0-2.2) Lipase (22-51) U/L Vitamin B12 (180-914) pg/mL Blood Type A POSITIVE Blood Type Recheck A POSITIVE Antibody Screen NEGATIVE Crossmatch IS Only See Detail 01/31/20 01/31/20 01/31/20 Range/Units 16:30 16:30 16:30 WBC (4.8-10.8) x10^3/uL RBC (4.70-6.10) 10^6/uL Hgb (14.0-18.0) g/dL Hct (42.0-52.0) % MCV (80.0-94.0) fL MCH (27.0-31.0) pg MCHC (32.0-36.0) g/dL RDW (12.0-15.0) % Plt Count (130-450) 10^3/uL MPV (7.4-11.4) fL Reticulocyte % (Auto) (0.5-2.3) % Neut # (Auto) (1.5-6.6) 10^3/uL Lymph # (Auto) (1.5-3.5) 10^3/uL Ceiba # (Auto) (0.0-1.0) 10^3/uL Eos # (Auto) (0.0-0.7) 10^3/uL Baso # (Auto) (0.0-0.1) 10^3/uL Absolute Nucleated RBC x10^3/uL Nucleated RBC % /100WBC Manual Slide Review WBC Morphology (NORMAL) Platelet Estimate (NORMAL) Platelet Morphology (NORMAL) RBC Morph Micro Appear (NORMAL) Absolute Retic (0.020-0.110) 10^6/uL Sodium (135-145) mmol/L Potassium (3.5-5.0) mmol/L Chloride (101-111) mmol/L Carbon Dioxide (21-32) mmol/L Anion Gap (6-13) BUN (6-20) mg/dL Creatinine (0.6-1.2) mg/dL Estimated GFR (MDRD) (>89) Glucose (70-100) mg/dL POC Whole Bld Glucose (70 - 100) mg/dL Estimat Average Glucose (70-100) mg/dL Hemoglobin A1c % (4.27-6.07) % Calcium (8.5-10.3) mg/dL Iron 18 L (45-182) ug/dL TIBC 426 (250-450) ug/dL % Saturation 4 L (20-50) % Transferrin 304 (180-329) mg/dL Ferritin 20.6 L (23.9-336.2) ng/mL Total Bilirubin (0.2-1.0) mg/dL AST (10-42) IU/L ALT (10-60) IU/L Alkaline Phosphatase (42-121) IU/L Lactate Dehydrogenase 189 (91-225) IU/L Troponin I High Sens (2.3-19.7) ng/L B-Natriuretic Peptide (5-100) pg/mL Total Protein (6.7-8.2) g/dL Albumin (3.2-5.5) g/dL Globulin (2.1-4.2) g/dL Albumin/Globulin Ratio (1.0-2.2) Lipase (22-51) U/L Vitamin B12 226 (180-914) pg/mL Blood Type Blood Type Recheck Antibody Screen Crossmatch IS Only 01/31/20 01/31/20 01/31/20 Range/Units 16:30 16:30 16:30 WBC (4.8-10.8) x10^3/uL RBC 3.03 L (4.70-6.10) 10^6/uL Hgb (14.0-18.0) g/dL Hct (42.0-52.0) % MCV (80.0-94.0) fL MCH (27.0-31.0) pg MCHC (32.0-36.0) g/dL RDW (12.0-15.0) % Plt Count (130-450) 10^3/uL MPV (7.4-11.4) fL Reticulocyte % (Auto) 1.02 (0.5-2.3) % Neut # (Auto) (1.5-6.6) 10^3/uL Lymph # (Auto) (1.5-3.5) 10^3/uL Ceiba # (Auto) (0.0-1.0) 10^3/uL Eos # (Auto) (0.0-0.7) 10^3/uL Baso # (Auto) (0.0-0.1) 10^3/uL Absolute Nucleated RBC x10^3/uL Nucleated RBC % /100WBC Manual Slide Review WBC Morphology (NORMAL) Platelet Estimate (NORMAL) Platelet Morphology (NORMAL) RBC Morph Micro Appear (NORMAL) Absolute Retic 0.031 (0.020-0.110) 10^6/uL Sodium (135-145) mmol/L Potassium (3.5-5.0) mmol/L Chloride (101-111) mmol/L Carbon Dioxide (21-32) mmol/L Anion Gap (6-13) BUN (6-20) mg/dL Creatinine (0.6-1.2) mg/dL Estimated GFR (MDRD) (>89) Glucose (70-100) mg/dL POC Whole Bld Glucose (70 - 100) mg/dL Estimat Average Glucose (70-100) mg/dL Hemoglobin A1c % (4.27-6.07) % Calcium (8.5-10.3) mg/dL Iron (45-182) ug/dL TIBC (250-450) ug/dL % Saturation (20-50) % Transferrin (180-329) mg/dL Ferritin (23.9-336.2) ng/mL Total Bilirubin (0.2-1.0) mg/dL AST (10-42) IU/L ALT (10-60) IU/L Alkaline Phosphatase (42-121) IU/L Lactate Dehydrogenase (91-225) IU/L Troponin I High Sens 17.7 (2.3-19.7) ng/L B-Natriuretic Peptide 1941 H (5-100) pg/mL Total Protein (6.7-8.2) g/dL Albumin (3.2-5.5) g/dL Globulin (2.1-4.2) g/dL Albumin/Globulin Ratio (1.0-2.2) Lipase (22-51) U/L Vitamin B12 (180-914) pg/mL Blood Type Blood Type Recheck Antibody Screen Crossmatch IS Only 01/31/20 01/31/20 Range/Units 16:30 16:30 WBC 4.1 L (4.8-10.8) x10^3/uL RBC 3.06 L (4.70-6.10) 10^6/uL Hgb 7.0 L* (14.0-18.0) g/dL Hct 24.8 L (42.0-52.0) % MCV 81.0 (80.0-94.0) fL MCH 22.9 L (27.0-31.0) pg MCHC 28.2 L (32.0-36.0) g/dL RDW 21.3 H (12.0-15.0) % Plt Count 199 (130-450) 10^3/uL MPV 10.8 (7.4-11.4) fL Reticulocyte % (Auto) (0.5-2.3) % Neut # (Auto) 2.7 (1.5-6.6) 10^3/uL Lymph # (Auto) 0.7 L (1.5-3.5) 10^3/uL Ceiba # (Auto) 0.6 (0.0-1.0) 10^3/uL Eos # (Auto) 0.2 (0.0-0.7) 10^3/uL Baso # (Auto) 0.0 (0.0-0.1) 10^3/uL Absolute Nucleated RBC 0.00 x10^3/uL Nucleated RBC % 0.0 /100WBC Manual Slide Review Indicated WBC Morphology NORMAL APPEARANCE (NORMAL) Platelet Estimate NORMAL (130-450,000) (NORMAL) Platelet Morphology NORMAL APPEARANCE (NORMAL) RBC Morph Micro Appear 1+ SCHISTOCYTES (NORMAL) Absolute Retic (0.020-0.110) 10^6/uL Sodium 143 (135-145) mmol/L Potassium 3.9 (3.5-5.0) mmol/L Chloride 105 (101-111) mmol/L Carbon Dioxide 27 (21-32) mmol/L Anion Gap 11.0 (6-13) BUN 39 H (6-20) mg/dL Creatinine 1.7 H (0.6-1.2) mg/dL Estimated GFR (MDRD) 38 L (>89) Glucose 114 H (70-100) mg/dL POC Whole Bld Glucose (70 - 100) mg/dL Estimat Average Glucose (70-100) mg/dL Hemoglobin A1c % (4.27-6.07) % Calcium 8.7 (8.5-10.3) mg/dL Iron (45-182) ug/dL TIBC (250-450) ug/dL % Saturation (20-50) % Transferrin (180-329) mg/dL Ferritin (23.9-336.2) ng/mL Total Bilirubin 0.8 (0.2-1.0) mg/dL AST 22 (10-42) IU/L ALT 14 (10-60) IU/L Alkaline Phosphatase 143 H (42-121) IU/L Lactate Dehydrogenase (91-225) IU/L Troponin I High Sens (2.3-19.7) ng/L B-Natriuretic Peptide (5-100) pg/mL Total Protein 6.9 (6.7-8.2) g/dL Albumin 3.1 L (3.2-5.5) g/dL Globulin 3.8 (2.1-4.2) g/dL Albumin/Globulin Ratio 0.8 L (1.0-2.2) Lipase 52 H (22-51) U/L Vitamin B12 (180-914) pg/mL Blood Type Blood Type Recheck Antibody Screen Crossmatch IS Only - Diagnostic Imaging Results Diagnostic Imaging Results: positive: Final report reviewed, Read independently (he has had several small stones without change for 9 or more years. significant ascites present small gallbladder polyp only couple mm), Other (Heart size is markedly enlarged. Bones and chest wall: No suspicious bony lesions. Overlying soft tissues appear unremarkable. IMPRESSION: Finding is suggestive of CHF. Underlying lateral lower lobe patchy infiltrates cannot be excluded. No pneumothorax. Reviewed by: Elliot Mclean MD on) Sepsis Event Note (H) - Evaluation Current Stage of Sepsis: Ruled out Impression/Plan - Problem List Problem List: CHF with resultant ascites and gallbladder congestion. Clinically he does not have cholecystitis or biliary cholic. I do not believe he has significant liver disease causing his ascites. Diet of choice. The gallbladder polyp is very small. I do not believe follow up ultrasound is needed
[2020-02-01] MEDS ORDERED: RIVAROXABAN 15 MG TABLET PO SCH (17:00)
[2020-02-01] MEDS: SACCHAROMYCES BOULARDII 250 MG CAPSULE PO SCH (17:08)
[2020-02-02] MEDS: SODIUM CHLORIDE FLUSH 0.9% 10 ML SYRINGE IVP SCH ×3 (00:30→17:06)
[2020-02-02 05:23] LABS: BASOPHILS % (AUTO) 0.7 %; EOSINOPHILS # (AUTO) 0.2 10^3/uL (0.0-0.7); EOSINOPHILS % (AUTO) 4.3 %; HGB - HEMOGLOBIN 7.5 g/dL (14.0-18.0); LYMPHOCYTES # (AUTO) 0.7 10^3/uL (1.5-3.5); MEAN CORPUSCULAR HEMOGLOBIN 23.5 pg (27.0-31.0); MEAN CORPUSCULAR HGB CONC 29.2 g/dL (32.0-36.0); MEAN CORPUSCULAR VOLUME 80.6 fL (80.0-94.0); MEAN PLATELET VOLUME 9.7 fL (7.4-11.4); MONOCYTES # (AUTO) 0.7 10^3/uL (0.0-1.0); MONOCYTES % (AUTO) 15.6 %; NEUTROPHILS # (AUTO) 2.6 10^3/uL (1.5-6.6); NEUTROPHILS % (AUTO) 62.2 %; PLT - PLATELET COUNT 168 10^3/uL (130-450); RED BLOOD COUNT 3.19 10^6/uL (4.70-6.10); RED CELL DISTRIBUTION WIDTH 20.9 % (12.0-15.0); WHITE BLOOD COUNT 4.2 x10^3/uL (4.8-10.8)
[2020-02-02 05:37] LABS: ALBUMIN 3.1 g/dL (3.2-5.5); ALBUMIN/GLOBULIN RATIO 0.8 (1.0-2.2); BILIRUBIN,TOTAL 1.3 mg/dL (0.2-1.0); CALCIUM 8.5 mg/dL (8.5-10.3); CREATININE 1.6 mg/dL (0.6-1.2); TOTAL PROTEIN 6.8 g/dL (6.7-8.2)
[2020-02-02 05:41] LABS: PLATELET ESTIMATE, MANUAL NORMAL (130-450,000) (NORMAL); PLATELET MORPHOLOGY NORMAL APPEARANCE (NORMAL)
[2020-02-02] MEDS: FUROSEMIDE 40 MG/4 ML VIAL IVP SCH ×2 (05:45→14:00)
[2020-02-02] MEDS: SODIUM CHLORIDE FLUSH 0.9% 10 ML SYRINGE IVP PRN (05:50)
[2020-02-02] MEDS ORDERED: POTASSIUM CHLORIDE 20 MEQ TABLET PO ONE (06:47)
[2020-02-02] MEDS: TAMSULOSIN 0.4 MG CAPSULE PO SCH (08:29)
[2020-02-02] MEDS: METOPROLOL SUCCINATE 50 MG TABLET PO SCH (08:29)
[2020-02-02] MEDS: FERROUS SULFATE 325 MG TABLET PO SCH ×2 (08:29→20:43)
[2020-02-02] MEDS: FAMOTIDINE 20 MG TABLET PO SCH (08:30)
[2020-02-02] MEDS: CYANOCOBALAMIN 500 MCG TABLET PO SCH (08:30)
[2020-02-02] MEDS: SACCHAROMYCES BOULARDII 250 MG CAPSULE PO SCH ×2 (08:30→17:06)
[2020-02-02] MEDS: INSULIN ASPART 300 UNIT/3 ML PEN SUBQ SCH ×4 (08:39→20:53)
--- NOTE | 2020-02-02 11:58 | PROVIDER PROGRESS NOTE ---
Assessment/Plan - Problem List (1) Acute on chronic congestive heart failure Assessment/Plan: 1016 Echo show patient had 40 to 45% of EF with moderate to severe right abnormal pressure. Patient BNP increases over 2200. but Clinically patient improved. His shortness of breathing is better. He remain 93% sats on room air. We will increase patient's Lasix to 80 mg twice daily intravenous. Patient take 80 mg p.o. twice daily in the home. Fluid restriction, daily weight, low-sodium diet. Continue film laboratory technician 10-15 Pt Feels better. Patient remain 97% sats on room air. BNP is trending down. Echo still pending. We will continue intravenous Lasix, continue film laboratory technician continue monitor signs monitor Per ER report patient had systolic heart failure with last ejection fraction of 45%. Patient present progressively shortness of breathing, orthopnea, anasarca with bilateral lower extremity edema, BNP over 1900, Chest x-ray suggestion CHF. ER already started with intravenous Lasix, we will continue intravenous Lasix.We will continue laboratory monitoring and continue vital signs monitor, Daily weight,Low-sodium diet, Because the patient also has acute kidney injury so patient has no fluids restriction in diet now, (2) cholecystitis Conclusion/Plan: 1016, Patient denies abdominal pain, WBC still was not elevated, no fever. Continue closely monitor patient, no antibiotics for patient now 1015, ultrasound showed patient had cholecystitis. Patient report 2-3 days abdominal pain. But the patient has no fever, no elevated WBC. Now his abdominal pain is controlled, and he feel comfortable. Patient has normal total bili, normal AST ALT, slightly elevated alkaline phosphate. Consult with surgeon, surgeon recommended antibiotics for patient now. Patient will see the patient, will continue follow-up with surgeon's recommendation. Add probiotics. Patient signed comfortable care in his PLOST, We discussed with the patient for any further intervention. pt report He had sharp up right abdominal pain For 2 to 3 days Special when he lay down in the bed. Patient has no abdominal pain now. Patient has no fever, WBC is not elevated. Patient reported he has no nausea, vomiting, diarrhea. Patient also present extended abdomen. We will ultrasound for patient abdomen, We will consult with a surgeon if necessary. (3) ascites Conclusion/Plan: 1016, improved, Patien's short of breathing improved. Is likely from congestion of patient's heart failure. We will continue diuretic. US of abdomen reveals liver nodules, pt agree to have CT of abdomen. Ultrasound show patient prominent ascites. Patient has normal total bili, normal AST ALT, slightly elevated alkaline phosphate. Continue follow-up surgeon to see if patient needed paracentesis. Patient has a liver nodules and combination patient has heart failure which both could contribute ascites. Patient had extended abdomen with bilateral lower extremity edema, Elevated BNP, Shortness of breathing, It is likely from patient acute on chronic heart failure with fluid overloaded. Patient is also complaining abdominal discomfort. We will continue intravenous Lasix, we will do ultrasound of the abdomen. (4) KATHLEEN (acute kidney injury) Conclusion/Plan: 1016, stable. creatinine 1.6, continue intravenous Lasix, continue film laboratory technician 1015, slightly improved, creatinine 1.6, continue intravenous Lasix, continue film laboratory technician Patient has creatinine 1.7, patient had creatinine 1.0 in June of this year. it is Likely from patient's Poor perfusion from heart failure. We will continue diuretics with Lasix, continue film laboratory technician, hold nephrogenic toxic agent. (5) Anemia Conclusion/Plan: 1016, stable, patient hemoglobin is 7.5 now. yesterday pt's HGB is 7.6. Patient was also found iron deficiency, continue iron. 1015, patient hemoglobin 7.6 after 1 unit blood transfusion, will continue lab monitor Patient hemoglobin 7.0, patient looks pale, Shortness of breathing. Patient denies GI bleeding, black stool or bloody stool. We will order 1 unit of the blood, after the transfusion we will give the patient Lasix. Order Occult stool test (6)GI bleed Patient's occult stool test is positive. Patient has anemia hemoglobin 7.0 at admission. Patient take Xarelto for his a fib. Discussed care plan with the patient, patient agreed to hold Xarelto, CAT scan of the abdomen to rule out malignancy. Patient has liver nodules in Ultrasound. H&H monitor pt. Add Protonix twice daily. we will discuss with pt and GI surgeon after review of pt's CT result. (7) HTN (hypertension) Conclusion/Plan: Patient has a history of hypertension, will resume home blood pressure medicine, we will resume metoprolol after confirmed by pharmacy. (8) Diabetes Conclusion/Plan: Patient has history diabetic, patient take metformin in the home, will hold metformin, we will start with sliding scale, glucose check and hypoglycemia protocol (9) A-fib Conclusion/Plan: 1016, stable, continue metoprolol, hold Xarelto 1015, stable, HR is controlled.Continue home medications Xarelto. Patient has a history of atrial fibrillation, right now patient heart rate is controlled, we will resume home metoprolol and blood thinner Xarelto, Continue telemetry and vital signs monitor patient (10) BPH (benign prostatic hyperplasia) Conclusion/Plan: Patient has history of BPH, will give patient Flomax and will resume home medication after confirmed by pharmacy - Current Meds Current Meds: Current Medications Generic Name Dose Route Start Last Admin Trade Name Freq PRN Reason Stop Dose Admin Cyanocobalamin 500 mcg 02/01/20 09:00 02/02/20 08:30 Vitamin B-12 PO 500 mcg DAILY DIANA Administration Famotidine 20 mg 01/31/20 21:00 02/02/20 08:30 Pepcid PO 20 mg BID DIANA Administration Ferrous Sulfate 325 mg 01/31/20 21:00 02/02/20 08:29 Feosol PO 325 mg BID DIANA Administration Furosemide 40 mg 02/01/20 06:00 02/02/20 05:45 Lasix Inj 40 Mg Vial IVP 40 mg BIDDIURETIC DIANA Administration Insulin Aspart 1 - 5 unit 01/31/20 21:00 02/02/20 11:31 Novolog SUBQ Not Given 0800,1200,1700,2100 DIANA Protocol Metoprolol Succinate 50 mg 02/01/20 09:00 02/02/20 08:29 Toprol Xl PO 50 mg DAILY DIANA Administration Montelukast Sodium 10 mg 01/31/20 21:00 02/01/20 21:19 Singulair PO 10 mg QPM DIANA Administration Rivaroxaban 15 mg 02/01/20 17:00 02/01/20 17:08 Xarelto PO 15 mg 1700 DIANA Administration Saccharomyces Boulardii 250 mg 02/01/20 17:00 02/02/20 08:30 Florastor PO 250 mg BIDWM DIANA Administration Sodium Chloride 10 ml 01/31/20 17:36 02/02/20 05:50 Normal Saline Flush 0.9% IVP 20 ml PRN PRN Administration NEEDED PER PROVIDER ORDERS Sodium Chloride 10 ml 02/01/20 01:00 02/02/20 00:30 Normal Saline Flush 0.9% IVP 10 ml 0100,0900,1700 DIANA Administration Tamsulosin HCl 0.4 mg 02/01/20 09:00 02/02/20 08:29 Flomax PO 0.4 mg DAILY DIANA Administration - Lab Result Fish Bone Diagrams: 02/02/20 04:57 02/02/20 04:57 - Additional Planning My Orders: My Active Orders 02/01/20 17:00 Rivaroxaban [Xarelto] 15 mg PO 1700 Saccharomyces Boulardii [Florastor] 250 mg PO BIDWM 02/01/20 18:14 Echo Transthoracic Complete [ECHO] Routine 02/02/20 07:52 Fluid Restriction [RC] ONCE 02/03/20 05:00 BNP - B-NATRIURETIC PEPTIDE [IAI] DAILYLAB CBC - COMP BLD CT W/AUTO DIFF [HEME] DAILYLAB CMP [COMPREHENSIVE METABOLIC PANEL] [CHEM] DAILYLAB 02/04/20 05:00 BNP - B-NATRIURETIC PEPTIDE [IAI] DAILYLAB CBC - COMP BLD CT W/AUTO DIFF [HEME] DAILYLAB CMP [COMPREHENSIVE METABOLIC PANEL] [CHEM] DAILYLAB 02/05/20 05:00 BNP - B-NATRIURETIC PEPTIDE [IAI] DAILYLAB CBC - COMP BLD CT W/AUTO DIFF [HEME] DAILYLAB CMP [COMPREHENSIVE METABOLIC PANEL] [CHEM] DAILYLAB 02/06/20 05:00 CMP [COMPREHENSIVE METABOLIC PANEL] [CHEM] DAILYLAB Subjective - Subjective Patient Reports: Feeling Better Objective Vital Signs: Vital Signs - 24 hr 02/01/20 02/01/20 02/01/20 15:42 18:33 19:55 Temperature 36.0 C L 36 C L Heart Rate 62 77 Heart Rate [ 66 Brachial] Respiratory 16 16 18 Rate Blood Pressure 129/77 [Right Brachial artery] O2 Saturation 99 94 02/01/20 02/02/20 02/02/20 21:00 00:00 05:45 Temperature 36.3 C L 36.4 C L Heart Rate Heart Rate [ 79 83 Brachial] Respiratory 20 Rate Blood Pressure 131/76 H 130/67 [Right Brachial artery] O2 Saturation 93 02/02/20 02/02/20 08:04 10:03 Temperature 36.3 C L Heart Rate 70 Heart Rate [ 81 Brachial] Respiratory 20 18 Rate Blood Pressure 143/79 H [Right Brachial artery] O2 Saturation 92 Oxygen O2 Source Room air I&O (Last 24 Hrs): Intake and Output Totals x24h 01/31/20 02/01/20 02/02/20 23:59 23:59 23:59 Intake Total 350 1320 730 Output Total 015 9250 9055 Bboppxs -366 -6855 -786 General: Alert, Oriented x3, No acute distress HEENT: Atraumatic Neck: Supple Lymphatic: no adenopathy Neuro: Alert, Non Focal, Oriented Times 3 Cardiovascular: Regular rate, Normal S1, Normal S2 Respiratory: Chest non-tender, No respiratory distress Abdomen: Normal bowel sounds, Soft, No tenderness Extremities: Normal pulses - Results Results: Laboratory Results WBC 4.2 x10^3/uL (4.8-10.8) L 02/02/20 04:57 RBC 3.19 10^6/uL (4.70-6.10) L 02/02/20 04:57 Hgb 7.5 g/dL (14.0-18.0) L 02/02/20 04:57 Hct 25.7 % (42.0-52.0) L 02/02/20 04:57 MCV 80.6 fL (80.0-94.0) 02/02/20 04:57 MCH 23.5 pg (27.0-31.0) L 02/02/20 04:57 MCHC 29.2 g/dL (32.0-36.0) L 02/02/20 04:57 RDW 20.9 % (12.0-15.0) H 02/02/20 04:57 Plt Count 168 10^3/uL (130-450) 02/02/20 04:57 MPV 9.7 fL (7.4-11.4) 02/02/20 04:57 Reticulocyte % (Auto) 1.02 % (0.5-2.3) 01/31/20 16:30 Neut # (Auto) 2.6 10^3/uL (1.5-6.6) 02/02/20 04:57 Lymph # (Auto) 0.7 10^3/uL (1.5-3.5) L 02/02/20 04:57 [place] # (Auto) 0.7 10^3/uL (0.0-1.0) 02/02/20 04:57 Eos # (Auto) 0.2 10^3/uL (0.0-0.7) 02/02/20 04:57 Baso # (Auto) 0.0 10^3/uL (0.0-0.1) 02/02/20 04:57 Absolute Nucleated RBC 0.00 x10^3/uL 02/02/20 04:57 Nucleated RBC % 0.0 /100WBC 02/02/20 04:57 Manual Slide Review Indicated 02/02/20 04:57 WBC Morphology NORMAL APPEARANCE (NORMAL) 02/02/20 04:57 Platelet Estimate NORMAL (130-450,000) (NORMAL) 02/02/20 04:57 Platelet Morphology NORMAL APPEARANCE (NORMAL) 02/02/20 04:57 RBC Morph Micro Appear 2+ ANISOCYTOSIS (NORMAL) 2+ HYPOCHROMASIA (NORMAL) 1+ OVALOCYTES (NORMAL) 02/02/20 04:57 RBC Morph Micro Appear 2+ ANISOCYTOSIS (NORMAL) 2+ HYPOCHROMASIA (NORMAL) 1+ OVALOCYTES (NORMAL) 02/02/20 04:57 RBC Morph Micro Appear 2+ ANISOCYTOSIS (NORMAL) 2+ HYPOCHROMASIA (NORMAL) 1+ OVALOCYTES (NORMAL) 02/02/20 04:57 Absolute Retic 0.031 10^6/uL (0.020-0.110) 01/31/20 16:30 Sodium 141 mmol/L (135-145) 02/02/20 04:57 Potassium 3.4 mmol/L (3.5-5.0) L 02/02/20 04:57 Chloride 104 mmol/L (101-111) 02/02/20 04:57 Carbon Dioxide 28 mmol/L (21-32) 02/02/20 04:57 Anion Gap 9.0 (6-13) 02/02/20 04:57 BUN 33 mg/dL (6-20) H 02/02/20 04:57 Creatinine 1.6 mg/dL (0.6-1.2) H 02/02/20 04:57 Estimated GFR (MDRD) 41 (>89) L 02/02/20 04:57 Glucose 102 mg/dL (70-100) H 02/02/20 04:57 POC Whole Bld Glucose 100 mg/dL (70 - 100) 02/02/20 11:07 Estimat Average Glucose 137 mg/dL (70-100) H 02/01/20 05:10 Hemoglobin A1c % 6.4 % (4.27-6.07) H 02/01/20 05:10 Calcium 8.5 mg/dL (8.5-10.3) 02/02/20 04:57 Iron 18 ug/dL (45-182) L 01/31/20 16:30 TIBC 426 ug/dL (250-450) 01/31/20 16:30 % Saturation 4 % (20-50) L 01/31/20 16:30 Transferrin 304 mg/dL (180-329) 01/31/20 16:30 Ferritin 20.6 ng/mL (23.9-336.2) L 01/31/20 16:30 Total Bilirubin 1.3 mg/dL (0.2-1.0) H 02/02/20 04:57 AST 20 IU/L (10-42) 02/02/20 04:57 ALT 13 IU/L (10-60) 02/02/20 04:57 Alkaline Phosphatase 130 IU/L (42-121) H 02/02/20 04:57 Lactate Dehydrogenase 189 IU/L (91-225) 01/31/20 16:30 Troponin I High Sens 17.7 ng/L (2.3-19.7) 01/31/20 16:30 B-Natriuretic Peptide 2212 pg/mL (5-100) H 02/02/20 04:57 Total Protein 6.8 g/dL (6.7-8.2) 02/02/20 04:57 Albumin 3.1 g/dL (3.2-5.5) L 02/02/20 04:57 Globulin 3.7 g/dL (2.1-4.2) 02/02/20 04:57 Albumin/Globulin Ratio 0.8 (1.0-2.2) L 02/02/20 04:57 Lipase 52 U/L (22-51) H 01/31/20 16:30 Vitamin B12 226 pg/mL (180-914) 01/31/20 16:30 Stl Occult Blood (IFOB) POSITIVE (NEGATIVE) A 01/31/20 09:00 Blood Type A POSITIVE 01/31/20 18:07 Blood Type Recheck A POSITIVE 01/31/20 16:30 Antibody Screen NEGATIVE 01/31/20 18:07 Crossmatch IS Only See Detail 01/31/20 18:07 Sepsis Event Note (H) - Evaluation Current Stage of Sepsis: Ruled out ABX Reporting Has patient been on IV antibiotics over the past 48 hours?: No Current Medications - Current Medications Current Medications: Active Medications Acetaminophen (Tylenol) 650 mg PO Q4HR PRN PRN Reason: Pain 1 to 4 Albuterol () 2.5 mg INH RTQ4H PRN PRN Reason: Wheezing Cyanocobalamin (Vitamin B-12) 500 mcg PO DAILY [facility] Last Admin: 02/02/20 08:30 Dose: 500 mcg Documented by: Ferrous Sulfate (Feosol) 325 mg PO BID [facility] Last Admin: 02/02/20 08:29 Dose: 325 mg Documented by: Furosemide (Lasix Inj 40 Mg Vial) 80 mg IVP BIDDIURETIC [facility] Insulin Aspart (Novolog) 1 - 5 unit SUBQ 0800,1200,1700,2100 [facility]; Protocol Last Admin: 02/02/20 11:31 Dose: Not Given Documented by: Metoprolol Succinate (Toprol Xl) 50 mg PO DAILY [facility] Last Admin: 02/02/20 08:29 Dose: 50 mg Documented by: Metoprolol Tartrate (Lopressor Inj) 5 mg IVP Q6H PRN PRN Reason: Tachycardia Montelukast Sodium (Singulair) 10 mg PO QPM [facility] Last Admin: 02/01/20 21:19 Dose: 10 mg Documented by: Ondansetron HCl (Zofran Odt) 4 mg TL Q6HR PRN PRN Reason: Nausea / Vomiting Ondansetron HCl (Zofran Inj) 4 mg IVP Q6HR PRN PRN Reason: Nausea / Vomiting Oxycodone HCl (Roxicodone) 5 mg PO Q4HR PRN PRN Reason: Pain 5 to 7 Pantoprazole Sodium (Protonix) 40 mg IVP BID DIANA Saccharomyces Boulardii (Florastor) 250 mg PO BIDWM [facility] Last Admin: 02/02/20 08:30 Dose: 250 mg Documented by: Sodium Chloride (Normal Saline Flush 0.9%) 10 ml IVP PRN PRN PRN Reason: NEEDED PER PROVIDER ORDERS Last Admin: 02/02/20 05:50 Dose: 20 ml Documented by: Sodium Chloride (Normal Saline Flush 0.9%) 10 ml IVP 0100,0900,1700 [facility] Last Admin: 02/02/20 00:30 Dose: 10 ml Documented by: Tamsulosin HCl (Flomax) 0.4 mg PO DAILY [facility] Last Admin: 02/02/20 08:29 Dose: 0.4 mg Documented by: Alfuzosin HCl [Alfuzosin HCl ER] 10 mg PO DAILY 02/28/19 Amlodipine Besylate 10 mg PO SUTUTHSA 02/28/19 Atorvastatin Calcium 40 mg PO QPM 02/28/19 Cetirizine HCl [Allergy Relief] 10 mg PO DAILY 02/28/19 Finasteride 5 mg PO DAILY 02/28/19 Furosemide 80 mg PO BID 02/28/19 Insulin Glargine [Lantus Solostar] 18 units SUBQ QPM 02/28/19 Losartan Potassium 50 mg PO DAILY 02/28/19 Metoprolol Succinate 50 mg PO BID 02/28/19 Montelukast Sodium 10 mg PO DAILY 02/28/19 Prazosin HCl 2 mg PO TID 02/28/19 metFORMIN [Glucophage] 1,000 mg PO BID 02/28/19 Cholecalciferol [Vitamin D3] 400 unit PO DAILY 02/01/20 Fluticasone [Flonase] 1 spray RAMON DAILY 02/01/20 Rivaroxaban [Xarelto] 15 mg PO DAILY 02/01/20
[2020-02-02] MEDS ORDERED: IOVERSOL 320 50 ML VIAL ONE (13:07)
--- NOTE | 2020-02-02 13:58 | PROVIDER PROGRESS NOTE ---
Subjective - Prog Note Date Prog Note Date: 02/02/20 - Subjective Pt reports feeling: Improved (tolerating diet well. feeling better. bm today with possible blood. he had anemia on admission) Objective - Vital Signs/Intake & Output Vital Signs: Vital Signs x48h Temp Pulse Pulse Resp BP Pulse Ox 02/02/20 10:03 70 18 02/02/20 08:04 36.3 C L 81 20 143/79 H 92 Intake & Output: Intake & Output 01/30/20 01/31/20 02/01/20 02/02/20 23:59 23:59 23:59 23:59 Intake Total 350 1320 1030 Output Total 625 4550 1525 Balance -049 -0664 -699 - Objective General Appearance: positive: No acute distress, Alert Eyes Bilateral: positive: Normal inspection, PERRL, EOMI Neck: positive: No JVD Respiratory: positive: No respiratory distress Abdomen: positive: Non-tender - Lab Results Fish Bones: 02/02/20 04:57 02/02/20 04:57 Other Labs: Lab Results x24hrs 02/02/20 02/02/20 02/02/20 Range/Units 11:07 07:56 04:57 WBC (4.8-10.8) x10^3/uL RBC (4.70-6.10) 10^6/uL Hgb (14.0-18.0) g/dL Hct (42.0-52.0) % MCV (80.0-94.0) fL MCH (27.0-31.0) pg MCHC (32.0-36.0) g/dL RDW (12.0-15.0) % Plt Count (130-450) 10^3/uL MPV (7.4-11.4) fL Neut # (Auto) (1.5-6.6) 10^3/uL Lymph # (Auto) (1.5-3.5) 10^3/uL [place] # (Auto) (0.0-1.0) 10^3/uL Eos # (Auto) (0.0-0.7) 10^3/uL Baso # (Auto) (0.0-0.1) 10^3/uL Absolute Nucleated RBC x10^3/uL Nucleated RBC % /100WBC Manual Slide Review WBC Morphology (NORMAL) Platelet Estimate (NORMAL) Platelet Morphology (NORMAL) RBC Morph Micro Appear (NORMAL) Sodium 141 (135-145) mmol/L Potassium 3.4 L (3.5-5.0) mmol/L Chloride 104 (101-111) mmol/L Carbon Dioxide 28 (21-32) mmol/L Anion Gap 9.0 (6-13) BUN 33 H (6-20) mg/dL Creatinine 1.6 H (0.6-1.2) mg/dL Estimated GFR (MDRD) 41 L (>89) Glucose 102 H (70-100) mg/dL POC Whole Bld Glucose 100 92 (70 - 100) mg/dL Calcium 8.5 (8.5-10.3) mg/dL Total Bilirubin 1.3 H (0.2-1.0) mg/dL AST 20 (10-42) IU/L ALT 13 (10-60) IU/L Alkaline Phosphatase 130 H (42-121) IU/L B-Natriuretic Peptide (5-100) pg/mL Total Protein 6.8 (6.7-8.2) g/dL Albumin 3.1 L (3.2-5.5) g/dL Globulin 3.7 (2.1-4.2) g/dL Albumin/Globulin Ratio 0.8 L (1.0-2.2) Stl Occult Blood (IFOB) (NEGATIVE) 02/02/20 02/02/20 02/01/20 Range/Units 04:57 04:57 21:04 WBC 4.2 L (4.8-10.8) x10^3/uL RBC 3.19 L (4.70-6.10) 10^6/uL Hgb 7.5 L (14.0-18.0) g/dL Hct 25.7 L (42.0-52.0) % MCV 80.6 (80.0-94.0) fL MCH 23.5 L (27.0-31.0) pg MCHC 29.2 L (32.0-36.0) g/dL RDW 20.9 H (12.0-15.0) % Plt Count 168 (130-450) 10^3/uL MPV 9.7 (7.4-11.4) fL Neut # (Auto) 2.6 (1.5-6.6) 10^3/uL Lymph # (Auto) 0.7 L (1.5-3.5) 10^3/uL [place] # (Auto) 0.7 (0.0-1.0) 10^3/uL Eos # (Auto) 0.2 (0.0-0.7) 10^3/uL Baso # (Auto) 0.0 (0.0-0.1) 10^3/uL Absolute Nucleated RBC 0.00 x10^3/uL Nucleated RBC % 0.0 /100WBC Manual Slide Review Indicated WBC Morphology NORMAL APPEARANCE (NORMAL) Platelet Estimate NORMAL (130-450,000) (NORMAL) Platelet Morphology NORMAL APPEARANCE (NORMAL) RBC Morph Micro Appear 1+ OVALOCYTES (NORMAL) Sodium (135-145) mmol/L Potassium (3.5-5.0) mmol/L Chloride (101-111) mmol/L Carbon Dioxide (21-32) mmol/L Anion Gap (6-13) BUN (6-20) mg/dL Creatinine (0.6-1.2) mg/dL Estimated GFR (MDRD) (>89) Glucose (70-100) mg/dL POC Whole Bld Glucose 124 H (70 - 100) mg/dL Calcium (8.5-10.3) mg/dL Total Bilirubin (0.2-1.0) mg/dL AST (10-42) IU/L ALT (10-60) IU/L Alkaline Phosphatase (42-121) IU/L B-Natriuretic Peptide 2212 H (5-100) pg/mL Total Protein (6.7-8.2) g/dL Albumin (3.2-5.5) g/dL Globulin (2.1-4.2) g/dL Albumin/Globulin Ratio (1.0-2.2) Stl Occult Blood (IFOB) (NEGATIVE) 02/01/20 01/31/20 Range/Units 16:56 09:00 WBC (4.8-10.8) x10^3/uL RBC (4.70-6.10) 10^6/uL Hgb (14.0-18.0) g/dL Hct (42.0-52.0) % MCV (80.0-94.0) fL MCH (27.0-31.0) pg MCHC (32.0-36.0) g/dL RDW (12.0-15.0) % Plt Count (130-450) 10^3/uL MPV (7.4-11.4) fL Neut # (Auto) (1.5-6.6) 10^3/uL Lymph # (Auto) (1.5-3.5) 10^3/uL [place] # (Auto) (0.0-1.0) 10^3/uL Eos # (Auto) (0.0-0.7) 10^3/uL Baso # (Auto) (0.0-0.1) 10^3/uL Absolute Nucleated RBC x10^3/uL Nucleated RBC % /100WBC Manual Slide Review WBC Morphology (NORMAL) Platelet Estimate (NORMAL) Platelet Morphology (NORMAL) RBC Morph Micro Appear (NORMAL) Sodium (135-145) mmol/L Potassium (3.5-5.0) mmol/L Chloride (101-111) mmol/L Carbon Dioxide (21-32) mmol/L Anion Gap (6-13) BUN (6-20) mg/dL Creatinine (0.6-1.2) mg/dL Estimated GFR (MDRD) (>89) Glucose (70-100) mg/dL POC Whole Bld Glucose 124 H (70 - 100) mg/dL Calcium (8.5-10.3) mg/dL Total Bilirubin (0.2-1.0) mg/dL AST (10-42) IU/L ALT (10-60) IU/L Alkaline Phosphatase (42-121) IU/L B-Natriuretic Peptide (5-100) pg/mL Total Protein (6.7-8.2) g/dL Albumin (3.2-5.5) g/dL Globulin (2.1-4.2) g/dL Albumin/Globulin Ratio (1.0-2.2) Stl Occult Blood (IFOB) POSITIVE A (NEGATIVE) - Diagnostic Imaging Diagnostic Imaging Results: positive: Read independently (ascites and small gallstones and very small gallbladder polyp) Sepsis Event Note (H) - Evaluation Current Stage of Sepsis: Ruled out Assessment/Plan - Problem List (1) Acute on chronic congestive heart failure Impression: With congested gallbladder. No cholecystitis clinically. Ok diet of choice and d/c antibiotics Admitted with anemia. No significant GI bleed. Agree with medical management. I don't believe colonoscopy or EGD is necessary. I agree with medical management as planned ie PPI, hold blood thiners, etc He is not a candidate for colon surgery. I don't believe colon cancer screening would be beneficial Will follow up the the CT scan
[2020-02-02] MEDS: PANTOPRAZOLE 40 MG VIAL IVP SCH ×2 (14:00→20:43)
--- NOTE | 2020-02-02 16:35 | CT Report ---
PROCEDURE: Abdomen/Pelvis WO INDICATIONS: GI bleed, liver nodules, malignancy? CONTRAST: IV CONTRAST: *NO IV CONTRAST PO CONTRAST: Optiray 320 ml50 TECHNIQUE: After the administration of oral contrast, 5 mm thick sections acquired from the diaphragms to the s ymphysis. 5 mm thick coronal and sagittal reformats were acquired. For radiation dose reduction, th e following was used: automated exposure control, adjustment of mA and/or kV according to patient si ze. COMPARISON: Ultrasound abdomen 01/31/2020, CT chest 10/07/2012. FINDINGS: Image quality: Excellent. ABDOMEN: Lung bases: There are small bilateral pleural effusions with associated compressive atelectasis in t he lung bases. There are a few small clustered groundglass nodules within the lung bases bilaterally suggestive of a mild infectious or inflammatory process. Heart size is markedly enlarged. No pericard ial effusions. There is extensive coronary arterial vascular calcification partially visualized. Solid organs: The liver is nodular in contour with heterogeneous hepatic parenchyma compatible with cirrhosis. Noncontrast evaluation of the liver demonstrates no discrete mass. The gallbladder is nond istended. Multiple calcified gallstones are demonstrated in the gallbladder. Evaluation of wall thick ness is limited due to nondistention. No peripancreatic fat stranding. There is an oval cystic collec tion within the uncinate process of the pancreas measuring up to approximately 1.2 cm. This appears s imilar in size compared to the prior chest CT. 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 The pancreatic duct appears nondistended. The spleen is normal in size . No adrenal nodules. Kidneys demonstrate no hydronephrosis. There is a small exophytic left renal cy st. Mild nonspecific perinephric stranding demonstrated bilaterally. A calcification in the right may al hilum likely represents basilar calcification. Peritoneum and bowel: There is prominent gaseous distention of the stomach There is a moderate amoun t of ascites in the abdomen and pelvis. Small and large bowel loops appear normal in caliber and wall thickness. There is colonic diverticulosis without acute diverticulitis. No discrete bowel mass iden tified in the absence of intravenous contrast. Nodes and vessels: No retroperitoneal or mesenteric adenopathy by size criteria. Aorta and inferior vena cava are normal in size. There is diffuse apical scarring fast calcification. Miscellaneous: No ventral hernias. PELVIS: Genitourinary: Bladder wall thickness is normal. Miscellaneous: No inguinal hernias or adenopathy. Bones: No suspicious bony lesions. No vertebral body compression fractures. IMPRESSION: 1. Nodular cirrhotic liver with evaluation for a possible hepatoma limited in the absence of intraven ous contrast. 2. Moderate amount of ascites in the abdomen and pelvis. No other definite imaging evidence of portal hypertension in the absence of intravenous contrast. 3. Cholelithiasis with nondistention of the gallbladder limiting evaluation of wall thickness. 4. Colonic diverticulosis without definite acute diverticulitis. 5. Small cystic lesion within the uncinate process of the pancreas appears similar to the prior CT. 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 If indicated, a follow-up study maybe performed in 12 months to demonstrate stability. 6. Small bilateral pleural effusions with compressive atelectasis in the lung bases. Reviewed by: Fredrick Parr MD on 02/02/2020 4:33 PM PDT Approved by: Fredrick Parr MD on 02/02/2020 4:33 PM PDT Station ID: [id number]
[2020-02-02 19:15] LABS: HGB - HEMOGLOBIN 8.3 g/dL (14.0-18.0)
[2020-02-02] MEDS: MONTELUKAST 10 MG TABLET PO SCH (20:43)
[2020-02-03] MEDS: SODIUM CHLORIDE FLUSH 0.9% 10 ML SYRINGE IVP SCH ×2 (01:14→09:01)
[2020-02-03 05:20] LABS: BASOPHILS % (AUTO) 0.8 %; EOSINOPHILS # (AUTO) 0.2 10^3/uL (0.0-0.7); EOSINOPHILS % (AUTO) 3.5 %; HGB - HEMOGLOBIN 7.7 g/dL (14.0-18.0); LYMPHOCYTES % (AUTO) 19.8 %; MEAN CORPUSCULAR HGB CONC 28.6 g/dL (32.0-36.0); MEAN CORPUSCULAR VOLUME 80.3 fL (80.0-94.0); MEAN PLATELET VOLUME 9.8 fL (7.4-11.4); MONOCYTES # (AUTO) 0.8 10^3/uL (0.0-1.0); MONOCYTES % (AUTO) 15.9 %; NEUTROPHILS # (AUTO) 2.9 10^3/uL (1.5-6.6); NEUTROPHILS % (AUTO) 59.8 %; PLT - PLATELET COUNT 183 10^3/uL (130-450); RED BLOOD COUNT 3.35 10^6/uL (4.70-6.10); RED CELL DISTRIBUTION WIDTH 21.1 % (12.0-15.0); WHITE BLOOD COUNT 4.8 x10^3/uL (4.8-10.8)
[2020-02-03 05:30] LABS: ALBUMIN 3.1 g/dL (3.2-5.5); ALBUMIN/GLOBULIN RATIO 0.8 (1.0-2.2); BILIRUBIN,TOTAL 1.2 mg/dL (0.2-1.0); CALCIUM 8.6 mg/dL (8.5-10.3); CREATININE 1.6 mg/dL (0.6-1.2); TOTAL PROTEIN 6.9 g/dL (6.7-8.2)
[2020-02-03 05:50] LABS: PLATELET ESTIMATE, MANUAL NORMAL (130-450,000) (NORMAL); PLATELET MORPHOLOGY NORMAL APPEARANCE (NORMAL)
[2020-02-03] MEDS: FUROSEMIDE 40 MG/4 ML VIAL IVP SCH (06:08)
[2020-02-03] MEDS: SODIUM CHLORIDE FLUSH 0.9% 10 ML SYRINGE IVP PRN (06:09)
[2020-02-03 07:46] VITALS: BP 136/78
[2020-02-03] MEDS: INSULIN ASPART 300 UNIT/3 ML PEN SUBQ SCH (09:00)
[2020-02-03] MEDS: CYANOCOBALAMIN 500 MCG TABLET PO SCH (09:00)
[2020-02-03] MEDS ORDERED: ALFUZOSIN HCL 10 MG PO SCH (09:00)
[2020-02-03] MEDS: SACCHAROMYCES BOULARDII 250 MG CAPSULE PO SCH (09:00)
[2020-02-03] MEDS ORDERED: FLUTICASONE NASAL SPRAY NAS SCH (09:00)
[2020-02-03] MEDS: TAMSULOSIN 0.4 MG CAPSULE PO SCH (09:00)
[2020-02-03] MEDS: FERROUS SULFATE 325 MG TABLET PO SCH (09:00)
[2020-02-03] MEDS: METOPROLOL SUCCINATE 50 MG TABLET PO SCH (09:01)
[2020-02-03] MEDS: PANTOPRAZOLE 40 MG VIAL IVP SCH (09:24)
--- NOTE | 2020-02-03 10:37 | Discharge Plan ---
Discharge Plan Problem Reviewed?: Yes Disposition: Home, Self Care Condition: Fair Prescriptions: Ferrous Sulfate [Feosol] 325 mg PO BID #60 tablet Cyanocobalamin [Vitamin B-12] 500 mcg PO DAILY #30 tablet Diet: Low Sodium Activity Restrictions: Activity as Tolerated Shower Restrictions: No Driving Restrictions: No Assistance Devices: Cane Instruction Topics: Cirrhosis, Cirrhosis Tx, Heart Failure Meds Control, Heart Failure, Heart Failure Tracking Weight, Heart Failure Diet Changes, Heart Failure Coping Health Concerns: You came to the emergency room because you were very short of breath and had become significantly swollen with water retention and had edema everywhere. Dr. Evans has you on Lasix 80 mg twice a day. Dr. Barbosa tried to help you with your water retention by changing the Lasix to Bumex 1 tablet twice a day. You also shared with me that you do not necessarily take your pills on a scheduled depending on what your activity is for the day. You also told me that you like to have your wine and your beer. All we did was resume your metoprolol, and aggressively make you pee with our Lasix medicine in your vein. You started at 91 kg of weight. And by the time we finished making you pee you were down to 88.5 kg of weight. We think you are retaining water because you have congestive heart failure and cirrhosis of the liver. We did an ultrasound of your heart. You do have moderately impaired muscle function of your heart. Normal ejection fraction, which is a measurement of how much blood moves forward out of your heart, is 55 to 65%. You are 40 to 45%. And your right heart is also not working causing blood to back up into your body, abdomen, and legs. Your heart valves have a tremendous amount of leaking blood backwards as well. We also found you to have significant anemia. A normal amount of blood in a man is 14 g of hemoglobin. You were 7. We transfused you 1 unit of blood. You were able to get up to 8.3 g of hemoglobin. And today, at discharge you are 7.7 again. We evaluated you to find out why you are having iron deficiency anemia. We think it is a combination of drinking too much alcohol, and you may have a pancreatic tumor. CAT scan of your abdomen shows you to have cirrhosis of the liver, and a pancreas tumor. Nothing in your colon. Dr. Hodge, who is the surgeon, came and gave an opinion and he does not feel you are a candidate for further procedures. You and your have also told nurse practitioner Ted Clemens that you really want to focus on comfort measures and not do a lot of stuff. We think that is very appropriate. You now have 3 diseases that will shorten your lifespan significantly. A bad heart, a pancreatic tumor, and cirrhosis of the liver. Please sit down and talk with Dr. Chavez about how you want to be taking care of over the next few months with the time you have left. We do not know how much time that is. Plan of Treatment: 1. You asked if you needed to stop drinking. It would most likely help with the water retention and the cirrhosis of the liver. 2. We have resumed the Lasix 80 mg twice a day. However, weigh yourself daily. If you increase your weight by 3 pounds you will need to increase your Lasix by 3 times a day. Or, as Dr. Chavez did, you will need to go to Bumex 2 mg 3 times a day. It is all a matter of trying to help you not retain water from congestive heart failure and cirrhosis of the liver. 3. We have stopped your Norvasc. You do not need to take it. But please take your losartan and your metoprolol. 4. We have reduced your Lantus from 18 units a day to 10 units a day. Your sugar is low enough that you do not need to take more. We also are recommending that you stop Metformin because it can cause severe reaction in someone who has cirrhosis and pancreatic tumor. 5. You asked me to give you my phone number in case you have any questions. The daytime hospitalist phone number is [phone]. I will be here until Wednesday evening. After that I am gone for a week and then come back. Care Goals: 1. To minimize the amount of procedures and treatment you get with this 2. To not be so short of breath 3. To continue to drink a little bit of wine and beer 4. To remain at home Assessment: Patient and feel that his shortness of breath is stable. Even though his BNP is elevated, he would like to go home. No Smoking: If you smoke, Please STOP! Call for help. Follow-up with: Sohail Barbosa MD [Primary Care Provider] -
--- NOTE | 2020-02-03 11:06 | DISCHARGE SUMMARY ---
"Discharge Summary Admit Date: 01/31/20 Discharge Date: 02/03/20 Discharging Provider: Adriana Bean MD Primary Care Provider: Sohail Barbosa MD Code Status: Do Not Attempt Resuscitation Condition at Discharge: Fair Discharge Disposition: 01 Home, Self Care - DIAGNOSES Discharge Diagnoses with Status of Each Condition: 1. 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 Cirrhosis of the liver 3. Pancreatic neoplasm uncertain behavior 4. Iron deficiency anemia 5. B12 deficiency anemia 6. Alcohol abuse 7. Anasarca 8. Biliary colic with cholelithiasis 9. Acute kidney injury 10. Hypertension 11. Fecal occult blood positive 12. Chronic atrial fibrillation 13. Type 2 diabetes mellitus, without complication, on long-term use of insulin 14. Benign prostatic hypertrophy - HPI History of Present Illness: This is a 89-year-old gentleman With a past medical history significant for hard hearing, Hypertension, High cholesterol, Coronary artery disease, Atrial fibrillation, congestive systolic heart failure, chronic shortness of breath, BPH and diabetes who was asked by his institutional nutrition consultant to come to the emergency department for evaluation of anasarca. Patient reported because he feel progressively shortness of breathing, special in the night he feel more short of breathing when he lay in the flat. He went to see his institutional nutrition consultant Dr. Evans on today. After Dr. Evans assessed patient, he recommended patient go to the emergency room For further evaluation for patient's anasarca.Per ER provider report from his institutional nutrition consultant Dr. Evans, 10 days ago the patient's Lasix regimen was stopped by his PCP as the primary provider felt it was not effective at reducing his water retention. his lasix 80 mg twice daily was changed to Bumex 1 mg twice daily. Since then the patient has had progressive swelling anasarca from his lower extremities up into the abdomen. On examination, patient did have extended abdomen and Moderate bilateral lower extremity edema. Patient denies chest pain, Fever or chill but states that he is more dyspneic than normal. He also reported right upper abdominal pain without nausea or vomiting beginning two or three days ago, pt denies Black or bloody stool. In routine laboratory testing show patient had elevated creatinine 1.7, BNP over 1900, and HGB 7.0. Chest x-ray finding is suggestive of CHF, laterally lower lobe patchy infiltration cannot be excluded. In the ER, patient is afebrile, no tachycardia, 99% sats in room air, RR 23, hemodynamic stable. Discussed care goal with the patient in ER with another nurse and one [employer] because of pt's hard hearing, patient clearly state he want to be DNR. - Past Medical History Cardiovascular: reports: Hypertension, High cholesterol, Coronary artery disease, Atrial fibrillation, Other Respiratory: reports: Shortness of breath Endocrine/Autoimmune: reports: Type 2 diabetes : reports: Benign prostate hypertrophy MRSA Hx?: No - Past Surgical History Cardiovascular: reports: CABG, Coronary stent, Cardiac catheterization, Other - CONSULTS | PROCEDURES Consultations: Dr. Brayan Hodge, general surgery Procedures: 1. Chest x-ray suggestive of congestive heart failure with underlying lateral lower lobe patchy infiltrates that either infiltrate or congestive heart failure. 2. Abdominal ultrasound done for right upper quadrant pain showed ascites, hep atomegaly with nodularity, steatosis, marked gallbladder wall thickening with nonmobile stone versus polyps. This is either cholelithiasis with cholecystitis or marked gallbladder wall thickening seen with hepatic disease. 3. Abdomen pelvis CT with nodular cirrhotic liver. Moderate amount of ascites in the abdomen and pelvis. Cholelithiasis with nondistention of the gallbladder. Colonic diverticulosis without diverticulitis. Small cystic lesion within the uncinate process of the liver similar to prior CT. 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 Follow-up study in 12 months to demonstrate stability. Small bilateral pleural effusion with compression atelectasis. 4. 1 unit of blood transfused - HOSPITAL COURSE Hospital Course: He was treated as congestive heart failure with aggressive diuresis. We found him to have water retention from 2 sources. He is acute on chronic systolic congestive heart failure that is biventricular. He also has cirrhosis of the liver. He also may have a new neoplasm of the pancreas. Treatment consisted of diuresis, transfusion of 1 unit of blood. We had gone looking for neoplasm because of iron deficiency anemia and fecal occult blood positive stool. He is on B12 supplementation, iron supplementation. The neoplasm question will not be answered with biopsy. The patient and his have made a conscious decision to focus on comfort measures without a lot of intervention. Please refer to advance care planning conversation during his stay. Dr. Hodge does not feel he is a candidate for colonoscopy. An episode of right upper quadrant pain resulted in a diagnosis of biliary colic with possible cholecystitis. But the patient did not have a fever or an elevated white cell count and as such no surgery is recommended. There were changes made to his medication list. Norvasc has been discontinued. He is to keep losartan and metoprolol. Bumex is discontinued. Is been recently started and he was unhappy with that. He is on Lasix 80 mg p.o. twice daily. I am asking him to weigh himself daily. If he gains 3 pounds he should take an extra dose of Lasix 80 mg that 1 day only and then go back to 80 mg twice daily. Reduce alcoholic intake to 1 glass of wine a day. Reduce salt intake severely. Restrict his water intake to 1500 cc a day complete. That means all of his milk, orange soda, Mountain Dew, tea, wine, etc. should add up to 1500 cc a day. I showed him what that means on the container that he has been using for the hospital. I do not want him taking Metformin because of his cirrhosis. Metformin in his condition could cause severe lactic acidosis. I have also reduced his Lantus from 18 units a day to 10 units a day. This was already done before admission. The patient on his own had gone back up to 18 and I reminded him to stay at 10. He is also discharged on B12 and iron supplementation since he is low in both. I would like him to see Dr. Evans and Dr. aBrbosa in routine follow-up. At this point he probably needs to be seen monthly to balance his fluid intake, diuresis, etc. He should also be seen to watch him carefully as he transition to a possibly more deteriorated condition needing either palliative care or hosp ice. In the next few weeks, I would reconsider whether he needs to stay on Xarelto or not. He was fecal occult blood positive. But no out right GI bleeding. Although his BNP is still quite elevated, the patient feels like he can go home. His BNP is 2380. Creatinine is stable at 1.6. However, he is ambulating in the room to go to the bathroom by himself and uses a cane for ambulation. He asencio s no increased respiratory effort doing that. He is gone from 91 kg of weight to 88.5. He really does not want to be here anymore. Temperature is 36.8. Pulse 92 and irregular. Blood pressure 136/78. Respirations are 20 and unlabored. Oxygen saturation is 94% on room air. He still has calf and ankle edema but the edema around his belly, groin and scrotum is improved. He still has a distended abdomen but I am not feeling a fluid wave yet. Nontender with normal bowel sounds. Lungs are clear. Irregular rate and rhythm. Systolic ejection murmur. Alert. Severely deaf. As long as he has his hearing aids in and he is seeing your lips for lipreading he understands everything that is goi ng on. is at the bedside. Ambulating in the room with the use of a cane and no ataxia. Greater than 30 minutes was spent coordinating discharge and carefully reviewing the changes of his medications, the findings during this stay, and what he needs to plan for the future. - ALLERGIES Allergies/Adverse Reactions: Allergies Allergy/AdvReac Type Severity Reaction Status Date / Time Cephalosporins AdvReac Rash Verified 01/31/20 16:14 - MEDICATIONS Home Medications: Ambulatory Orders Medication Instructions Recorded Confirmed Alfuzosin HCl [Alfuzosin HCl ER] 10 mg PO DAILY 02/28/19 02/01/20 Atorvastatin Calcium 40 mg PO QPM 02/28/19 02/01/20 Cetirizine HCl [Allergy Relief] 10 mg PO DAILY 02/28/19 02/01/20 Finasteride 5 mg PO DAILY 02/28/19 02/01/20 Furosemide 80 mg PO BID 02/28/19 02/01/20 Losartan Potassium 50 mg PO DAILY 02/28/19 02/01/20 Metoprolol Succinate 50 mg PO BID 02/28/19 02/01/20 Montelukast Sodium 10 mg PO DAILY 02/28/19 02/01/20 Prazosin HCl 2 mg PO TID 02/28/19 02/01/20 Cholecalciferol [Vitamin D3] 400 unit PO DAILY 02/01/20 02/01/20 Fluticasone [Flonase] 1 spray RAMON DAILY 02/01/20 02/01/20 Rivaroxaban [Xarelto] 15 mg PO DAILY 02/01/20 02/01/20 Cyanocobalamin [Vitamin B-12] 500 mcg PO DAILY #30 tablet 02/03/20 Ferrous Sulfate [Feosol] 325 mg PO BID #60 tablet 02/03/20 Insulin Glargine [Lantus Solostar] units SUBQ QPM #0 02/03/20 02/01/20 - LABS Result Diagrams: 02/03/20 05:10 02/03/20 05:10 - SEPSIS Current Stage of Sepsis: Ruled out"
== END 2020-02-03 12:17 | disposition home or self-care (01) | DRG 292 ==
LOC: ED 15:56 → MS2 17:36
PROVIDERS: ADMIT Specialist; ATTEND Specialist
DX: I50.23 Acute on chronic systolic (congestive) heart failure (principal); N17.9 Acute kidney failure, unspecified; I48.11 Longstanding persistent atrial fibrillation; I48.20 Chronic atrial fibrillation, unspecified; R18.8 Other ascites; I11.0 Hypertensive heart disease with heart failure; N28.9 Disorder of kidney and ureter, unspecified; D64.9 Anemia, unspecified; F10.10 Alcohol abuse, uncomplicated; K74.60 Unspecified cirrhosis of liver; D37.8 Neoplasm of uncertain behavior of other specified digestive organs; E11.9 Type 2 diabetes mellitus without complications; D50.9 Iron deficiency anemia, unspecified; D51.9 Vitamin B12 deficiency anemia, unspecified; I08.1 Rheumatic disorders of both mitral and tricuspid valves; R93.2 Abnormal findings on diagnostic imaging of liver and biliary tract; I25.10 Atherosclerotic heart disease of native coronary artery without angina pectoris; E78.00 Pure hypercholesterolemia, unspecified; N40.0 Benign prostatic hyperplasia without lower urinary tract symptoms; K80.20 Calculus of gallbladder without cholecystitis without obstruction; H91.90 Unspecified hearing loss, unspecified ear; R19.5 Other fecal abnormalities; Z66 Do not resuscitate; Z51.5 Encounter for palliative care; Z79.01 Long term (current) use of anticoagulants; Z79.4 Long term (current) use of insulin; Z79.899 Other long term (current) drug therapy; Z95.5 Presence of coronary angioplasty implant and graft; Z87.891 Personal history of nicotine dependence
CPT/HCPCS: 36415; 71045; 74176; 74177; 76700; 80048; 80053; 82105; 82274; 82607; 82728; 83036; 83540; 83615; 83690; 83880; 84466; 84484; 85014; 85018; 85025; 85045; 86850; 86900; 86901; 86920; 93005; 93306; 99284; 99285; A9270; P9016